=== PATIENT | male | born 1975 | race Caucasian/White ===

== ENCOUNTER 2024-05-02 09:29 | Outpatient (CLI) | payer OTHER, SELFPAY ==
--- NOTE | 2024-05-10 11:22 | WPDHOMESLEEP ---
Sleep Study - Home Unattended Date of Study: 05/02/24 Ordering Provider: Kim Dyer NP Interpreting Provider: Monie Kraft MD Home Sleep Study Type: Watch PAT Height: 1.78 m Weight: 102.058 kg Body Mass Index: 32.3 Neck Circumference (inches): 16.75 [place]: 11 Reason for Sleep Study Hypersomnolence Sleep History Pato Ching is a 48-year-old male who has gained 10 lb in the last year. His office note indicates that he drinks caffeine, 5 caffeinated beverages, a combination of coffee and Monster drinks. He is a daily smoker. He has 5 beers daily. He falls asleep easy leave when he sits down. He has seasonal allergies, uses Zyrtec and Flonase. He has occasional coughing and wheezing. He has occasional heartburn manage with Tums or Rolaids. He did not complete the sleep questionnaire. [facility] Past Medical History Medical History Acute right hip pain BMI 29.0-29.9,adult BMI 31.0-31.9,adult BMI 33.0-33.9,adult Colon cancer screening (05/03/24) Normal colonoscopy 05/03/2024, Dr. Khan, recheck 7 years. Essential (primary) hypertension Herpes simplex of male genitalia HTN (hypertension) Hypersomnia Hypogonadism male Low back pain with right-sided sciatica Male erectile dysfunction, unspecified Otitis media of both ears Seasonal allergies Snoring Tobacco use disorder, continuous Vitamin D deficiency Witnessed episode of apnea Family History Family History Mother No problems noted. Father , 69 yrs old at time of Alzheimers disease Grandparent Cancer Grandparent , in house fire No problems noted. Grandparent Cancer Grandparent Cancer Social History Social History Smoking packs per day: 1 Smoking cigarettes per day: 20.0 Years smoked: 3 Smoking pack-years: 3.00 Smoking status: Current every day smoker Tobacco type: cigarettes Alcohol intake: current Drinks per week: 35 Alcohol use details: 6 per day Substance use: never Substance use type: does not use Lack of Transportation: No Lack of Food: Never True Current Housing: I Have Housing Concerned About Future Housing: No Difficulty Paying Gas/Electric Bills: No Difficulty Paying for Meds: No Currently Unemployed: No Education: High School Diploma/GED Difficulty w/ Childcare or Family Care: No Living arrangements: with family Occupation/Education: occupation Gender identity (if verbalized by the patient): Male Sexual Orientation (if Verbalized by the Patient): Straight or Heterosexual Spiritual care concerns: No Agree to blood products: Yes Medications Home Medications Medication Instructions Recorded Confirmed Type tadalafil 20 mg tablet 20 mg PO DAILY PRN Sexual Activity 10/21/20 05/03/24 History amlodipine 10 mg tablet 10 mg PO DAILY #90 tabs 04/06/24 05/03/24 Rx valacyclovir 500 mg tablet 500 mg PO DAILY #90 tabs 04/06/24 05/03/24 Rx cetirizine 10 mg tablet (Zyrtec) 10 mg PO DAILY PRN Allergy Symptoms 04/12/24 05/03/24 History fluticasone propionate 50 1 spray intranasal BID 04/12/24 05/03/24 History mcg/actuation nasal spray,suspension (Flonase Allergy Relief) Sleep Procedure The sleep study was completed using MIOXT a technically adequate device with seven channels: peripheral arterial tone, actigraphy, body position, snore, respiratory movement, pulse oximetry, sleep staging, and heart rate. Prior to using the device, the patient received verbal and written instructions for its application and was provided with the [employer] phone number for additional telephonic instruction with 24-hour availability of qualified personnel to answer questions. Sleep Architecture Total recording time is 7 hours 11 minutes. Total sleep ayo
[2024-05-10 11:33] VITALS: BMI 32.3
== END 2024-05-08 10:19 | disposition home or self-care (01) ==
LOC: ANHCSM 09:30
PROVIDERS: PCP Family Medicine; Visit Provider Nurse Practitioner Family
DX: G47.10 Hypersomnia, unspecified (principal); G47.33 Obstructive sleep apnea (adult) (pediatric)
CPT/HCPCS: 95800

== ENCOUNTER 2024-05-03 08:21 | Day surgery (SDC) | payer OTHER, SELFPAY ==
[2024-04-12 10:24] VITALS: BMI 33.3
[2024-05-03 08:45] VITALS: BP 142/92; PULSE 90; RESP 18; TEMP 37.1; O2SAT 99; BMI 32.2
[2024-05-03] MEDS: LACTATED RINGERS 1,000 ML 150 ML IV CONT (08:59)
--- NOTE | 2024-05-03 09:40 | PM.HPGS ---
History of Present Illness History of Present Illness Consent: Risks, benefits, and alternatives have been discussed and questions answered. Patient agrees to proceed with procedure. Chief complaint: Neoplasm Screening Narrative: Pato Ching is a 48 year old male presents for screening colonoscopy. Patient's current weight appetite and bowel movements are normal. The patient denies abdominal pain. He has had no bleeding. Family history is significant his mother had colon polyps. Review of Systems Review of Systems: All systems reviewed & are unremarkable except as noted in HPI and below PMFSH Past Medical History Medical History (Updated 04/12/24 @ 08:24 by Kim Dyer NP) Acute right hip pain BMI 29.0-29.9,adult BMI 31.0-31.9,adult BMI 33.0-33.9,adult Colon cancer screening Essential (primary) hypertension Herpes simplex of male genitalia HTN (hypertension) Hypersomnia Hypogonadism male Low back pain with right-sided sciatica Male erectile dysfunction, unspecified Otitis media of both ears Seasonal allergies Snoring Tobacco use disorder, continuous Vitamin D deficiency Witnessed episode of apnea Family History Family History Mother No problems noted. Father , 69 yrs old at time of Alzheimers disease Grandparent Cancer Grandparent , in house fire No problems noted. Grandparent Cancer Grandparent Cancer Social History Social History Smoking packs per day: 1 Smoking cigarettes per day: 20.0 Years smoked: 3 Smoking pack-years: 3.00 Smoking status: Current every day smoker Tobacco type: cigarettes Alcohol intake: current Drinks per week: 35 Alcohol use details: 6 per day Substance use: never Substance use type: does not use Lack of Transportation: No Lack of Food: Never True Current Housing: I Have Housing Concerned About Future Housing: No Difficulty Paying Gas/Electric Bills: No Difficulty Paying for Meds: No Currently Unemployed: No Education: High School Diploma/GED Difficulty w/ Childcare or Family Care: No Living arrangements: with family Occupation/Education: occupation Gender identity (if verbalized by the patient): Male Sexual Orientation (if Verbalized by the Patient): Straight or Heterosexual Spiritual care concerns: No Agree to blood products: Yes Meds Home Medications and Allergies Home Medications Medication Instructions Recorded Confirmed Type tadalafil 20 mg tablet 20 mg PO DAILY PRN Sexual Activity 10/21/20 05/03/24 History amlodipine 10 mg tablet 10 mg PO DAILY #90 tabs 04/06/24 05/03/24 Rx valacyclovir 500 mg tablet 500 mg PO DAILY #90 tabs 04/06/24 05/03/24 Rx cetirizine 10 mg tablet (Zyrtec) 10 mg PO DAILY PRN Allergy Symptoms 04/12/24 05/03/24 History fluticasone propionate 50 1 spray intranasal BID 04/12/24 05/03/24 History mcg/actuation nasal spray,suspension (Flonase Allergy Relief) Allergies Allergy/AdvReac Type Severity Reaction Status Date / Time No Known Allergies Allergy Verified 04/30/24 09:57 Vital Signs Vital Signs - 24 hr 05/03/24 08:45 Temperature 98.8 F Pulse Rate 90 Respiratory Rate 18 Blood Pressure 142/92 H Pulse Oximetry 99 Oxygen Delivery Room Air Exam Narrative: Physical exam reveals patient to be alert. Vital signs stable. HEENT exam is unremarkable. Patient is anicteric. Lungs are clear to auscultation and to percussion. Heart is without murmur or extra sounds. Abdomen bowel sounds are present soft nontender with no organomegaly. Digital external rectal exam normal. Assessment and Plan Assessment and plan (1) Colon cancer screening: Code(s): Z12.11 - Encounter for screening for malignant neoplasm of colon Status: Acute Assessment and P
--- NOTE | 2024-05-03 09:41 | WPDANESEPPF ---
Anes - Initial Pre Proc Eval Procedure: Operation Date: 05/03/24 10:00 Proposed Procedures p Screening Colonoscopy - Charlie Khan MD Date/Time: 05/03/24 09:41 Surgeon: Charlie Khan MD Pre Op Diagnosis: Neoplasm Screening Patient Data Age: 48 Gender: M Height: 1.78 m Weight: 101.8 kg Last Vital Signs Temp 37.1 C 05/03/24 08:45 Pulse 90 05/03/24 08:45 Resp 18 05/03/24 08:45 BP 142/92 H 05/03/24 08:45 Pulse Ox 99 05/03/24 08:45 O2 Del Method Room Air 05/03/24 08:45 Allergies Allergy/AdvReac Type Severity Reaction Status Date / Time No Known Allergies Allergy Verified 04/30/24 09:57 Home Medications Medication Instructions Recorded Confirmed Type tadalafil 20 mg tablet 20 mg PO DAILY PRN Sexual Activity 10/21/20 05/03/24 History amlodipine 10 mg tablet 10 mg PO DAILY #90 tabs 04/06/24 05/03/24 Rx valacyclovir 500 mg tablet 500 mg PO DAILY #90 tabs 04/06/24 05/03/24 Rx cetirizine 10 mg tablet (Zyrtec) 10 mg PO DAILY PRN Allergy Symptoms 04/12/24 05/03/24 History fluticasone propionate 50 1 spray intranasal BID 04/12/24 05/03/24 History mcg/actuation nasal spray,suspension (Flonase Allergy Relief) Patient hx anesthesia problems: none Family hx anesthesia problems: none Results Review: All pre-operative results and documents have been reviewed as part of the pre-operative evaluation. [facility] Past Medical History Medical History Acute right hip pain BMI 29.0-29.9,adult BMI 31.0-31.9,adult BMI 33.0-33.9,adult Colon cancer screening Essential (primary) hypertension Herpes simplex of male genitalia HTN (hypertension) Hypersomnia Hypogonadism male Low back pain with right-sided sciatica Male erectile dysfunction, unspecified Otitis media of both ears Seasonal allergies Snoring Tobacco use disorder, continuous Vitamin D deficiency Witnessed episode of apnea Family History Family History Mother No problems noted. Father , 69 yrs old at time of Alzheimers disease Grandparent Cancer Grandparent , in house fire No problems noted. Grandparent Cancer Grandparent Cancer Social History Social History Smoking packs per day: 1 Smoking cigarettes per day: 20.0 Years smoked: 3 Smoking pack-years: 3.00 Smoking status: Current every day smoker Tobacco type: cigarettes Alcohol intake: current Drinks per week: 35 Alcohol use details: 6 per day Substance use: never Substance use type: does not use Lack of Transportation: No Lack of Food: Never True Current Housing: I Have Housing Concerned About Future Housing: No Difficulty Paying Gas/Electric Bills: No Difficulty Paying for Meds: No Currently Unemployed: No Education: High School Diploma/GED Difficulty w/ Childcare or Family Care: No Living arrangements: with family Occupation/Education: occupation Gender identity (if verbalized by the patient): Male Sexual Orientation (if Verbalized by the Patient): Straight or Heterosexual Spiritual care concerns: No Agree to blood products: Yes Anes - Eval Final PreProcedure Day of Procedure 05/03/24 09:41 Patient weight: obese Heart: regular rate and rhythm Lungs: clear to auscultation Airway: Mallampati scale class II Neurological: alert and oriented Last oral intake: >/= 8 hours ASA classification: III Emergent: no Anesthetic plan: proceed Anesthesia type and monitoring: general GIVS and standard monitoring Results Review: All pre-operative results and documents have been reviewed as part of the pre-operative evaluation. Informed Consent: The patient's anesthetic plan and its attendant risks and benefits were discussed with the patient/family/POA. Questions were so
[2024-05-03 11:09] VITALS: BP 92/73; PULSE 93; RESP 16; O2SAT 96
[2024-05-03 11:19] VITALS: BP 101/79; PULSE 88; RESP 18; O2SAT 97
--- NOTE | 2024-05-03 11:25 | WPDANESPN ---
Anes - Prog Note Post-Op Date/Time: 05/03/24 11:25 Cardiovascular status: normal Respiratory status: normal Airway patency: baseline Mental status: baseline Post-Op hydration status: normal Vital Signs: Last Vital Signs Temp 37.1 C 05/03/24 08:45 Pulse 88 05/03/24 11:19 Resp 18 05/03/24 11:19 BP 101/79 05/03/24 11:19 Pulse Ox 97 05/03/24 11:19 O2 Del Method Room Air 05/03/24 11:19 Pain Score (VAS): 0/10 I/O: Intake & Output 05/02/24 05/03/24 05/03/24 23:59 07:59 15:59 Intake Total 400 Balance 400 Patient Feedback: Patient satisfied with anesthetic care.
[2024-05-03 11:29] VITALS: BP 127/93; PULSE 86; RESP 18; O2SAT 100
== END 2024-05-03 11:35 | disposition home or self-care (01) ==
PROVIDERS: PCP Family Medicine; Visit Provider Internal Medicine Gastroenterology
PROC: 0DJD8ZZ Inspection of Lower Intestinal Tract, Via Natural or Artificial Opening Endoscopic (ICD-10-PCS; CPT 45378; principal; 2024-05-03 10:00)
DX: Z12.11 Encounter for screening for malignant neoplasm of colon (principal); Z83.718 Family history of other colon polyps
CPT/HCPCS: 45378

== ENCOUNTER 2024-11-10 03:15 | Emergency (ER) | payer OTHER, SELFPAY ==
[2024-11-10] VITALS (36 sets, daily range): BP systolic 134–176; BP diastolic 79–105; PULSE 73–118; RESP 14–24; TEMP 36.4; O2SAT 94–100
--- NOTE | ~2024-11-10 | CT_ITS ---
EXAMINATION: 1. CT facial & cervical spine wo DATE: 11/10/2024 06:14 INDICATION: Syncope with head injury and facial lacerations. TECHNIQUE: 1. Computed tomography (CT) of the maxillofacial region and of the cervical spine were performed with out intravenous contrast. Sagittal and coronal reconstructions of both regions were obtained. Automat ed exposure control and iterative reconstruction technique were employed. The dose-length product was 385.7 mGy-cm. COMPARISON: None. FINDINGS: Maxillofacial CT: Prominent soft tissue swelling with subcutaneous hematoma in the left malar region. No acute maxillof acial fractures. Specifically the nasal bones, mandible, zygomatic arches and corbett of the orbits and paranasal sinuses are all intact. There is mild leftward bowing of the nasal septum which parallels the contours of the turbinates. There is prominent mucosal thickening in the bilateral maxillary, eth moid and sphenoid sinuses along with small amount of bubbly mucus suggesting acute sinusitis. Orbits are normal. Mastoid air cells and middle ear cavities are clear. Cervical spine CT: Straightening of the normal cervical lordosis. Moderate osteoarthritis at the atlantoaxial articulati on. Vertebral body heights are normal. No fracture. Severe disc height loss at C6-C7, moderate disc h eight loss at C5-C6 and mild disc height loss at C4-C5. Disc bulges and small endplate osteophytes re sult in mild central canal stenosis at each of these levels. Severe bilateral uncovertebral osteoarth ritis at C6-C7 and mild uncovertebral osteoarthritis at C4-C5 and C5-C6. There is also multilevel mil d bilateral cervical facet osteoarthritis. Moderate neural foraminal stenosis bilaterally at C6-C7. M ild neural foraminal stenosis on the right at C4-C5. Small amount of atherosclerotic calcific locatio n at the bilateral carotid bulbs. Cervical soft tissues are otherwise unremarkable. IMPRESSION: 1. Left malar soft tissue swelling with subcutaneous hematoma. No acute maxillofacial fractures. 2. Mild to moderate cervical spondylosis with no acute osseous abnormality. 3. Extensive sinus disease with some frothy mucus suspicious for acute sinusitis. Reviewed, dictated and finalized at location A. R LINE REPAIRER IMPRESSION: 1. Left malar soft tissue swelling with subcutaneous hematoma. No acute maxillo facial fractures. 2. Mild to moderate cervical spondylosis with no acute osseous abnormality. 3. Extensive sinus disease with some frothy mucus suspicious for acute sinusiti s.
--- NOTE | ~2024-11-10 | CT_ITS ---
EXAMINATION: CT brain wo con DATE: 11/10/2024 06:13 INDICATION: Syncope with head injury and facial lacerations. TECHNIQUE: Computed tomography (CT) of the head was performed without intravenous contrast. Sagittal and coronal reconstructions were performed. The mA was adjusted according to patient size. Iterative reconstruction technique was employed. The dose-length product was 681.00 mGy-cm. COMPARISON: None FINDINGS: No calvarial fracture. No acute intracranial hemorrhage, acute infarction or abnormal extra axial flu id collection. Ventricles are normal and symmetric. No mass/mass effect. Mucosal thickening and depen dent mucus/fluid in the bilateral maxillary, ethmoid and sphenoid sinuses. The orbits and mastoid air cells are normal. IMPRESSION: 1. No calvarial fracture or acute intracranial process. 2. Extensive sinus disease. Reviewed, dictated and finalized at location A. N MENDER
--- NOTE | ~2024-11-10 | XR_ITS ---
EXAMINATION: XR chest 2V DATE: 11/10/2024 04:11 INDICATION: Syncopal episode with fall. Cough. TECHNIQUE: frontal and lateral views of the chest were obtained. COMPARISON: None FINDINGS: The lungs are clear with no focal airspace opacities, pulmonary edema, pleural effusion or pneumothor ax. The cardiomediastinal silhouette is normal. Old healed right clavicle fracture deformity. IMPRESSION: 1. No acute cardiopulmonary disease. Reviewed, dictated and finalized at location A. AL CROP DUSTER
--- NOTE | 2024-11-10 03:34 | ECG_ITS ---
Test Date: 2024-11-10 03:32:03 Measurements Intervals [place] Rate: 103 P: 56 IA: 137 QRS: 14 QRSD: 109 T: 43 QT: 342 QTc: 449 Interpretive Statements SINUS TACHYCARDIA OTHERWISE NORMAL ECG Electronically Signed On 11-10-2024 08:30:30 [employer] by Eamon Banuelos M.D.
[2024-11-10 03:48] LABS: Basophils Absolute Auto 0.1 K/mm3 (0.0-0.1); Basophils Percent Auto 1.5 % (0.2-1.2); Eosinophils Absolute Auto 0.3 K/mm3 (0-0.3); Eosinophils Percent Auto 2.7 % (0-4.4); Hemoglobin 15.9 g/dL (14.0-18.0); Immature Granulocyte Absolute 0.08 K/mm3 (0.00-0.031); Immature Granulocyte Percent A 0.9 % (0-0.5); Lymphocytes Absolute Auto 2.46 K/mm3 (0.9-3.2); Lymphocytes Percent Auto 26.5 % (18.3-44.2); Mean Corpuscular Hemoglobin 32.9 pg (26-34); Mean Corpuscular Volume 88.8 fl (80-100); Mean Platelet Volume 7.9 fl (7.4-10.4); Monocytes Absolute Auto 0.7 K/mm3 (0.1-0.6); Monocytes Percent Auto 7.2 % (2.6-8.5); Neutrophils Absolute Auto 5.7 K/mm3 (1.3-6.7); Neutrophils Percent Auto 61.2 % (45.5-73.1); Platelet Count Result 344 k/mm3 (150-375); Red Blood Count 4.84 M/mm3 (4.6-6.20); Red Cell Distribution Width 12.2 % (11.5-14.5); White Blood Count 9.3 K/mm3 (4.5-10.0)
[2024-11-10 04:02] LABS: Alanine Aminotransferase 40 U/L (6-50); Albumin Level 4.4 g/dL (3.5-5.1); Alkaline Phosphatase 67 U/L (38-126); Anion Gap 7 mmol/L (4-12); Aspartate Amino Transferase 48 U/L (17-59); Bilirubin,Total 0.6 mg/dL (0.2-1.3); Blood Urea Nitrogen 8 mg/dL (9-20); Calcium 9.2 mg/dL (8.4-10.2); Carbon Dioxide 21 mmol/L (22-30); Chloride 104 mmol/L (98-107); Estimated CRCL calculation 121 ml/min; Estimated Glomerular Filt Rate > 60; Glucose 129 mg/dL (65-110); Potassium 4.2 mmol/L (3.4-5.0); Sodium 132 mmol/L (137-145)
[2024-11-10 05:40] LABS: Troponin I < 0.012 ng/mL (0.000-0.034)
[2024-11-10] MEDS: SODIUM CHLORIDE 0.9% IV 2,000 ML 999 ML IV CONT (08:57)
[2024-11-10] MEDS: TETANUS,DIPHTHERIA,AC PERTUSSIS ADULT (0.5 ML) BOOSTRIX IM (08:58)
--- NOTE | 2024-11-10 09:22 | ED_ITS ---
HPI - General Adult General Chief complaint: Syncope Stated complaint: SYNCOPAL EPISODE, LEFT CHEEK ABRASION & LAC Time Seen by Provider: 11/10/24 07:01 History of Present Illness HPI narrative: this is a 49-year-old male presenting ED with chief of syncope. Yesterday patient had 2 syncopal events. Both occurred after he went from sitting either in his sofa or his bed and got up. He within lose consciousness fall to the ground. Patient sustained a laceration over his left cheek. No use of blood thinners. No neurologic deficits. patient denies any chest pain palpitations shortness of breath seating these events. Patient is recently been started on amlodipine as well as a water pill for hypertension. Related Data Home Medications ?Medication ?Instructions ?Recorded ?Confirmed ?Last Taken ?Type tadalafil 20 mg tablet 20 mg PO DAILY PRN Sexual Activity 10/21/20 09/21/24 Unknown History cetirizine 10 mg tablet (Zyrtec) 10 mg PO DAILY PRN Allergy Symptoms 04/12/24 09/21/24 05/02/24 History fluticasone propionate 50 1 spray intranasal BID 04/12/24 09/21/24 05/01/24 History mcg/actuation nasal spray,suspension (Flonase Allergy Relief) Allergies Allergy/AdvReac Type Severity Reaction Status Date / Time No Known Allergies Allergy Verified 11/10/24 03:36 [facility] Past Medical History Medical History (Updated 11/10/24 @ 09:28 by Raymond Whitney MD) BMI 34.0-34.9,adult Central sleep apnea Seasonal allergies Otitis media of both ears Colon cancer screening (05/03/24) Normal colonoscopy 05/03/2024, Dr. Khan, recheck 7 years. Hypersomnia Witnessed episode of apnea Snoring Vitamin D deficiency BMI 33.0-33.9,adult Acute right hip pain BMI 31.0-31.9,adult Low back pain with right-sided sciatica Tobacco use disorder, continuous BMI 29.0-29.9,adult Herpes simplex of male genitalia Hypogonadism male Male erectile dysfunction, unspecified Essential (primary) hypertension HTN (hypertension) Family History Family History Mother No problems noted. Father , 69 yrs old at time of Alzheimers disease Grandparent Cancer Grandparent , in house fire No problems noted. Grandparent Cancer Grandparent Cancer Social History Social History Smoking packs per day: 1 Smoking cigarettes per day: 20.0 Years smoked: 3 Smoking pack-years: 3.00 Smoking status: Current every day smoker Tobacco type: cigarettes Alcohol intake: current Drinks per week: 35 Alcohol use details: 6 per day Substance use: never Substance use type: does not use Lack of Transportation: No Lack of Food: Never True Current Housing: I Have Housing Concerned About Future Housing: No Difficulty Paying Gas/Electric Bills: No Difficulty Paying for Meds: No Currently Unemployed: No Education: High School Diploma/GED Difficulty w/ Childcare or Family Care: No Living arrangements: with family Occupation/Education: occupation Gender identity (if verbalized by the patient): Male Sexual Orientation (if Verbalized by the Patient): Straight or Heterosexual Spiritual care concerns: No Agree to blood products: Yes Exam 2 Narrative: APPEARANCE: No apparent distress. Head:3.5 cm laceration over the left cheek, periorbital ecchymosis over left eye EYES: EOMI, NOSE: Atraumatic NECK: Trachea midline RESPIRATORY: No increased rate of breathing clear to auscultation CARDIOVASCULAR: RRR, ABDOMINAL: Non-distended MUSCULOSKELETAl: No obvious deformities NEURO: Alert. Cranial nerves 2-12 grossly intact. Sensation light touch, motor function cerebellar function intact for 4 extremities. Gait exam was normal. SKIN:: Warm, dry. Normal color PSYCHIATRIC: Normal affect Course Vital Signs Vital signs: Vital Signs Temperature 97.5 F L 11/10/24 03:15 Pulse Rate 118 H 11/10/24 03:15 Respiratory Rate 20 11/10/24 03:15 Blood Pressure 149/105 H 11/10/24 03:15 Pulse Oximetry 97 11/10/24 03:15 Oxygen Delivery Room Air 11/10/24 03:15 Temperature 97.5 F L 11/10/24 03:15 Pulse Rate 96 11/10/24 09:01 Respiratory Rate 20 11/10/24 09:01 Blood Pressure 166/101 H 11/10/24 09:01 Pulse Oximetry 98 11/10/24 09:01 Oxygen Delivery Room Air 11/10/24 03:15 Procedures Laceration Laceration 1: Date: 11/10/24 Site: face Side (If applicable): left Size (cm): 3.5 Description: linear Depth: simple, single layer Local Anesthetic: lidocaine 1% Amount of anesthesia used (mL): 3 ====== Skin Level ====== Skin layer closed with: prolene Size (cm): 5-0 Number of sutures: 6 Technique: simple, interrupted ====== Subcutaneous Layer ====== ====== Muscle Layer ====== ====== Tendon Layer ====== Medical Decision Making MDM Narrative Medical decision making narrative: -Course: 49-year-old male presenting with 2 syncopal events. Syncopal events are orthostatic in nature no high-risk findings on laboratory studies/ EKG. Laceration was repaired. CT imaging negative for traumatic injury patient. given fluid resuscitation with improvement in heart rate. Patient was able ambulate around the ED without dizziness or lightheadedness. Patient be discharged follow-up with his primary care physician to discuss his antihypertensive regimen. He has been encouraged to drink plenty fluids. Given return precautions. -DDX includes but is not limited to: dehydration orthostatic hypotension, syncope -Co-morbidities complicating care: hypertension -Independent interpretation of studies: labs and imaging reviewed Independent EKG interpretation: Rhythm [sinus], Rate [103], [place] -[normal], MD -[normal], QRS [narrow], QTC [normal], T waves -[negative for concerning inversions], ST Segments - [Negative for concerning elevations] Final interpretations: sinus tachycardia -Procedures: laceration repair -Interventions: 2 L normal saline, Tdap -Shared decision making / Disposition:Discharged. Vital Signs Vital Signs: Vital Signs Temperature 97.5 F L 11/10/24 03:15 Pulse Rate 118 H 11/10/24 03:15 Respiratory Rate 20 11/10/24 03:15 Blood Pressure 149/105 H 11/10/24 03:15 Pulse Oximetry 97 11/10/24 03:15 Oxygen Delivery Room Air 11/10/24 03:15 Temperature 97.5 F L 11/10/24 03:15 Pulse Rate 96 11/10/24 09:01 Respiratory Rate 20 11/10/24 09:01 Blood Pressure 166/101 H 11/10/24 09:01 Pulse Oximetry 98 11/10/24 09:01 Oxygen Delivery Room Air 11/10/24 03:15 Lab Data 11/10/24 03:41 11/10/24 03:41 Labs: Lab Results 11/10/24 Range/Units 03:41 WBC 9.3 (4.5-10.0) K/mm3 RBC 4.84 (4.6-6.20) M/mm3 Hgb 15.9 (14.0-18.0) g/dL Hct 43.0 (42.0-52.0) % MCV 88.8 (80-100) fl MCH 32.9 (26-34) pg MCHC 37.0 H (32-36) g/dl RDW 12.2 (11.5-14.5) % Plt Count 344 (150-375) k/mm3 MPV 7.9 (7.4-10.4) fl Immature Gran % (Auto) 0.9 H (0-0.5) % Neut % (Auto) 61.2 (45.5-73.1) % Lymph % (Auto) 26.5 (18.3-44.2) % Placer % (Auto) 7.2 (2.6-8.5) % Eos % (Auto) 2.7 (0-4.4) % Baso % (Auto) 1.5 H (0.2-1.2) % Lymph # (Auto) 2.46 (0.9-3.2) K/mm3 Placer # (Auto) 0.7 H (0.1-0.6) K/mm3 Eos # (Auto) 0.3 (0-0.3) K/mm3 Baso # (Auto) 0.1 (0.0-0.1) K/mm3 Abs Immat Gran (auto) 0.08 H (0.00-0.031) K/mm3 Absolute Neuts (auto) 5.7 (1.3-6.7) K/mm3 Absolute Nucleated RBC 0.000 (0.0-0.012) K/mm3 Nucleated RBC % 0.0 (0.0-0.2) % Sodium 132 L (137-145) mmol/L Potassium 4.2 (3.4-5.0) mmol/L Chloride 104 (98-107) mmol/L Carbon Dioxide 21 L (22-30) mmol/L Anion Gap 7 (4-12) mmol/L BUN 8 L (9-20) mg/dL Creatinine 0.80 (0.7-1.3) mg/dL Estim Creat Clear Calc 121 ml/min Estimated GFR > 60 (59 - ) Glucose 129 H (65-110) mg/dL Calcium 9.2 (8.4-10.2) mg/dL Total Bilirubin 0.6 (0.2-1.3) mg/dL AST 48 (17-59) U/L ALT 40 (6-50) U/L Alkaline Phosphatase 67 (38-126) U/L Troponin I < 0.012 (0.000-0.034) ng/mL Total Protein 8.0 (6.3-8.2) g/dL Albumin 4.4 (3.5-5.1) g/dL Discharge Plan Discharge Clinical Impression: Orthostatic syncope, Facial laceration Patient Disposition: Home, Self-Care Condition: Stable Instructions: Antibiotic Form, Care For Your Stitches (DC), Syncope (ED), Facial Laceration (ED) Additional Instructions: You were seen in the emergency department for syncope. Please make sure you are drinking plenty of fluids. Please follow-up your primary care physician as you are on several medications that could cause her blood pressure to be too low. Please return to the ED if you develop recurrent syncope, chest pain difficulty breathing or would like re-evaluation. The sutures on your face need to be removed in 5 days. This can be performed by any medical. If you develop signs of infection please return emergency department immediately. Patient Language: Lao Prescriptions: No Action hydrochlorothiazide 12.5 mg tablet 12.5 mg PO DAILY Qty: 90 3RF tadalafil 20 mg tablet 20 mg PO DAILY PRN (Reason: Sexual Activity) Rx Instructions: administer approximately 30min before sexual activity; do not use more than 1 dose per 24hrs amlodipine 10 mg tablet 10 mg PO DAILY Qty: 90 3RF valacyclovir 500 mg tablet 500 mg PO DAILY Qty: 90 3RF fluticasone propionate [Flonase Allergy Relief] 50 mcg/actuation spray,suspension 1 spray intranasal BID Rx Instructions: administer into each nostril cetirizine [Zyrtec] 10 mg tablet 10 mg PO DAILY PRN (Reason: Allergy Symptoms) zolpidem [Ambien] 10 mg tablet 10 mg PO ONCE Qty: 1 0RF Rx Instructions: take with you to sleep study Follow-up/Referrals: Isaiah Streeter MD [Primary Care Provider] -
== END 2024-11-10 11:12 | disposition home or self-care (01) ==
PROVIDERS: Emergency Medicine; Emergency Provider Emergency Medicine; PCP Family Medicine
DX: I95.1 Orthostatic hypotension (principal); S01.412A Laceration without foreign body of left cheek and temporomandibular area, initial encounter; Z23 Encounter for immunization; I10 Essential (primary) hypertension; E55.9 Vitamin D deficiency, unspecified; G47.31 Primary central sleep apnea; G47.10 Hypersomnia, unspecified; F17.210 Nicotine dependence, cigarettes, uncomplicated; Z79.899 Other long term (current) drug therapy; R00.0 Tachycardia, unspecified; W18.39XA Other fall on same level, initial encounter
CPT/HCPCS: 12013; 36415; 70450; 70486; 71046; 72125; 80053; 84484; 85025; 90471; 90715; 93005; 96360; 99284; J2003; J7030

== ENCOUNTER 2025-04-26 20:05 | Inpatient (IN) | payer OTHER, SELFPAY ==
[2025-04-26] VITALS (16 sets, daily range): BP systolic 123–177; BP diastolic 77–103; PULSE 56–90; RESP 15–23; TEMP 36.6; O2SAT 95–100
--- NOTE | ~2025-04-26 | XR_ITS ---
XR chest 2V Ordering provider: Costa Koenig MD History: 49 years Male with . CP . Comparison: November 10, 2024 FINDINGS: MEDIASTINUM: The cardiac silhouette is not enlarged. LUNGS: No infiltrates, effusions or pneumothorax. OTHER: No free air under the diaphragm. IMPRESSION: No acute cardiopulmonary pathology Reviewed, dictated and finalized at location A.
--- NOTE | 2025-04-26 20:11 | ECG_ITS ---
Test Date: 2025-04-26 20:15:53 Measurements Intervals [place] Rate: 82 P: 56 [place]: 124 QRS: 34 QRSD: 113 T: 37 QT: 366 QTc: 429 Interpretive Statements SINUS RHYTHM INCOMPLETE RIGHT BUNDLE BRANCH BLOCK BASELINE WANDER- I, II, III, AVR AVL, AVF, V1-V2 BORDERLINE ECG Compared to ECG 11/10/2024 03:32:03 HEART RATE HAS DECREASED Electronically Signed On 04-27-2025 07:17:46 CDT by Yair Francisco D.O.
--- NOTE | 2025-04-26 20:28 | ED.CHESTPAIN ---
HPI - Chest Pain General Chief Complaint: Chest Pain <LAURA Esparza Last Filed: 04/27/25 00:41> Stated Complaint: chest pain <LAURA Esparza Last Filed: 04/27/25 00:41> Time Seen by Provider: 04/26/25 20:13 <LAURA Esparza Last Filed: 04/27/25 00:41> Source: patient <LAURA Esparza Last Filed: 04/27/25 00:41> Mode of arrival: ambulatory <LAURA Esparza Last Filed: 04/27/25 00:41> Limitations: no limitations <LAURA Esparza Last Filed: 04/27/25 00:41> History of Present Illness HPI narrative: This is a 49-year-old male that presents to the emergency department for left-sided chest pain. Ongoing intermittently since this afternoon while at work. Reports the pain radiates into his left arm and left jaw. It is fairly brief. No known alleviating or exacerbating factors. Denies any other associated symptoms. No pain currently. <LAURA Esparza Last Filed: 04/27/25 00:41> Related Data Home Medications: Home Medications ?Medication ?Instructions ?Recorded ?Confirmed ?Last Taken ?Type tadalafil 20 mg tablet 20 mg PO DAILY PRN Sexual Activity 10/21/20 04/19/25 Unknown History cetirizine 10 mg tablet (Zyrtec) 10 mg PO DAILY PRN Allergy Symptoms 04/12/24 04/19/25 05/02/24 History fluticasone propionate 50 1 spray intranasal BID 04/12/24 04/19/25 05/01/24 History mcg/actuation nasal spray,suspension (Flonase Allergy Relief) <LAURA Esparza Last Filed: 04/27/25 00:41> Allergies/Adverse Reactions: Allergies Allergy/AdvReac Type Severity Reaction Status Date / Time No Known Allergies Allergy Verified 04/19/25 08:06 <LAURA Esparza Last Filed: 04/27/25 00:41> Review of Systems Review of Systems: CONSTITUTIONAL: Denies fever CARDIOVASCULAR: Reports chest pain. Denies palpitations, or edema. RESPIRATORY: Denies cough or dyspnea. GASTROINTESTINAL: Denies abdominal pain, nausea, vomiting <Brittni Ayers PA-C - Last Filed: 04/27/25 00:41> All systems reviewed & are unremarkable except as noted in HPI and below <Brittni Ayers PA-C - Last Filed: 04/27/25 00:41> [facility] Past Medical History Medical History: Medical History (Updated 04/26/25 @ 23:33 by Brittni Ayers PA-C) Muscle spasm BMI 35.0-35.9,adult BMI 34.0-34.9,adult Central sleep apnea Seasonal allergies Otitis media of both ears Colon cancer screening (05/03/24) Normal colonoscopy 05/03/2024, Dr. Khan, recheck 7 years. Hypersomnia Witnessed episode of apnea Snoring Vitamin D deficiency BMI 33.0-33.9,adult Acute right hip pain BMI 31.0-31.9,adult Low back pain with right-sided sciatica Tobacco use disorder, continuous BMI 29.0-29.9,adult Herpes simplex of male genitalia Hypogonadism male Male erectile dysfunction, unspecified Essential (primary) hypertension HTN (hypertension) <Brittni Ayers PA-C - Last Filed: 04/27/25 00:41> Family History Family History: Family History Mother No problems noted. Father , 69 yrs old at time of Alzheimers disease Grandparent Cancer Grandparent , in house fire No problems noted. Grandparent Cancer Grandparent Cancer <Brittni Ayers PA-C - Last Filed: 04/27/25 00:41> Social History Social History: Social History Smoking packs per day: 1 Smoking cigarettes per day: 20.0 Years smoked: 3 Smoking pack-years: 3.00 Smoking status: Current every day smoker Tobacco type: cigarettes Alcohol intake: current Drinks per week: 35 Alcohol use details: 6 per day Substance use: never Substance use type: does not use Lack of Transportation: No Lack of Food: Never True Current Housing: I Have Housing Concerned About Future Housing: No Difficulty Paying Gas/Electric Bills: No Difficulty Paying for Meds: No Currently Unemployed: No Education: High School Diploma/GED Difficulty w/ Childcare or Family Care: No Living arrangements: with family Occupation/Education: occupation Gender identity (if verbalized by the patient): Male Sexual Orientation (if Verbalized by the Patient): Straight or Heterosexual Spiritual care concerns: No Agree to blood products: Yes <Brittni Ayers PA-C - Last Filed: 04/27/25 00:41> Exam Narrative: GENERAL: Well-appearing, well-nourished, and in no acute distress. HEAD: Normocephalic, atraumatic. EYES: EOMI. ENT: Nares clear, no rhinorrhea or epistaxis. Mucous membranes moist. Oropharynx without tonsillar hypertrophy exudate or other lesions. NECK: Supple. No adenopathy or masses. CHEST: Clear to auscultation. No respiratory distress. No wheezes rales or rhonchi HEART: Regular rate and rhythm. No murmur heard. Normal peripheral pulses. EXTREMITIES: Normal range of motion. No edema. SKIN: Warm, dry, no rash. NEURO: No focal deficits. Alert and oriented x3. PSYCH: Normal mood and affect <Brittni Ayers PA-C - Last Filed: 04/27/25 00:41> Course Course Emergency Course: Patient was updated on his workup, conversation with cardiology, and plan of care <Brittni Ayers PA-C - Last Filed: 04/27/25 00:41> CHUMMER/PA Physician Supervision I agree with midlevel documentation; I performed the medical decision making component of this evaluation. Patient's 3 hour EKG reviewed by myself, I did note elevations in inferior leads with changes lateral leads, compared to initial EKG 3 hrs ago these are all new, I am highly concerned for ischemia, immediately contacted associate agent insurance sales at [phone], EKG viewed by them, manufacturing lab technician activated, all within 15 min upon receipt of this new EKG. Patient on re-evaluation now reporting chest pressure return, started on aspirin and heparin and will be going to manufacturing lab technician. <Magali Hinojosa MD - Last Filed: 04/27/25 01:28> Consultations Consultation #1: [address] changes, interventional cardiology contacted. STEMI activated. Dr. Alva recommends Aspirin and Heparin bolus. Patient endorsing current chest pressure. Morphine and zofran ordered <Brittni Ayers PA-C - Last Filed: 04/27/25 00:41> Date: 04/26/25 <Brittni Ayers PA-C - Last Filed: 04/27/25 00:41> Vital Signs Vital signs: Vital Signs Temperature 97.8 F 04/26/25 20:16 Pulse Rate 87 04/26/25 20:16 Respiratory Rate 16 04/26/25 20:16 Blood Pressure 177/99 H 04/26/25 20:16 Pulse Oximetry 95 04/26/25 20:16 Oxygen Delivery Room Air 04/26/25 20:16 Temperature 98.2 F 04/27/25 00:07 Pulse Rate 72 04/27/25 00:07 Respiratory Rate 18 04/27/25 00:07 Blood Pressure 134/96 H 04/27/25 00:07 Pulse Oximetry 97 04/27/25 00:07 Oxygen Delivery Room Air 04/26/25 23:31 <Brittni Ayers PA-C - Last Filed: 04/27/25 00:41> Vital Signs Temperature 97.8 F 04/26/25 20:16 Pulse Rate 87 04/26/25 20:16 Respiratory Rate 16 04/26/25 20:16 Blood Pressure 177/99 H 04/26/25 20:16 Pulse Oximetry 95 04/26/25 20:16 Oxygen Delivery Room Air 04/26/25 20:16 Temperature 98.2 F 04/27/25 00:07 Pulse Rate 72 04/27/25 00:07 Respiratory Rate 18 04/27/25 00:07 Blood Pressure 134/96 H 04/27/25 00:07 Pulse Oximetry 97 04/27/25 00:07 Oxygen Delivery Room Air 04/26/25 23:31 <Magali Hinojosa MD - Last Filed: 04/27/25 01:28> MDM - Chest Pain MDM Narrative Medical decision making narrative: Patient presents the ER for chest pain ongoing intermittently since this afternoon. Hypertensive upon arrival, this improved without intervention. CBC and metabolic panel without concerning findings. Initial EKG showing no acute ST changes, baseline troponin negative. Chest x-ray without acute cardiopulmonary abnormality. 3 hour EKG showing new ST changes, interventional cardiology contacted. STEMI activated. Dr. Alva recommends Aspirin and Heparin bolus. Patient endorsing current chest pressure. Morphine and zofran given. Patient taken to the manufacturing lab technician <Brittni Ayers PA-C - Last Filed: 04/27/25 00:41> Differential Diagnosis Differential diagnosis: Likely stable angina, unstable angina pectoris, atypical chest pain and other (STEMI, NSTEMI) <Brittni Ayers PA-C - Last Filed: 04/27/25 00:41> Lab Data Attestation: I reviewed the patient's lab results. <Brittni Ayers PA-C - Last Filed: 04/27/25 00:41> Result diagrams: 04/26/25 20:31 04/26/25 20:31 <LAURA Esparza Last Filed: 04/27/25 00:41> Labs: Lab Results 04/26/25 04/26/25 Range/Units 20:31 23:03 WBC 9.6 (4.5-10.0) K/mm3 RBC 4.79 (4.6-6.20) M/mm3 Hgb 15.4 (14.0-18.0) g/dL Hct 43.1 (42.0-52.0) % MCV 90.0 (80-100) fl MCH 32.2 (26-34) pg MCHC 35.7 (32-36) g/dl RDW 12.5 (11.5-14.5) % Plt Count 281 (150-375) k/mm3 MPV 8.1 (7.4-10.4) fl Immature Gran % (Auto) 0.3 (0-0.5) % Neut % (Auto) 65.8 (45.5-73.1) % Lymph % (Auto) 23.6 (18.3-44.2) % Bonner % (Auto) 8.9 H (2.6-8.5) % Eos % (Auto) 0.6 (0-4.4) % Baso % (Auto) 0.8 (0.2-1.2) % Lymph # (Auto) 2.26 (0.9-3.2) K/mm3 Bonner # (Auto) 0.9 H (0.1-0.6) K/mm3 Eos # (Auto) 0.1 (0-0.3) K/mm3 Baso # (Auto) 0.1 (0.0-0.1) K/mm3 Abs Immat Gran (auto) 0.03 (0.00-0.031) K/mm3 Absolute Neuts (auto) 6.3 (1.3-6.7) K/mm3 Absolute Nucleated RBC 0.000 (0.0-0.012) K/mm3 Nucleated RBC % 0.0 (0.0-0.2) % PT 13.7 (11.1-14.7) Seconds INR 1.1 APTT 27.1 (22.3-36.8) Seconds Sodium 135 L (137-145) mmol/L Potassium 3.9 (3.4-5.0) mmol/L Chloride 105 (98-107) mmol/L Carbon Dioxide 21 L (22-30) mmol/L Anion Gap 9 (4-12) mmol/L BUN 14 D (9-20) mg/dL Creatinine 0.96 (0.7-1.3) mg/dL Estim Creat Clear Calc Not Reportable Estimated GFR > 60 (59 - ) Glucose 108 (65-110) mg/dL Calcium 9.3 (8.4-10.2) mg/dL Total Bilirubin 0.4 (0.2-1.3) mg/dL AST 30 (17-59) U/L ALT 29 (6-50) U/L Alkaline Phosphatase 58 (38-126) U/L Troponin I 0.013 0.030 D (0.000-0.034) ng/mL Total Protein 7.9 (6.3-8.2) g/dL Albumin 4.4 (3.5-5.1) g/dL Triglycerides 147 (<150) mg/dL Cholesterol 177 (0-200) mg/dL LDL Cholesterol Direct 93 mg/dL HDL Direct 54 mg/dL Lipase 79 (23-300) U/L <Brittni Ayers PA-C - Last Filed: 04/27/25 00:41> Lab Results 04/26/25 04/26/25 Range/Units 20:31 23:03 WBC 9.6 (4.5-10.0) K/mm3 RBC 4.79 (4.6-6.20) M/mm3 Hgb 15.4 (14.0-18.0) g/dL Hct 43.1 (42.0-52.0) % MCV 90.0 (80-100) fl MCH 32.2 (26-34) pg MCHC 35.7 (32-36) g/dl RDW 12.5 (11.5-14.5) % Plt Count 281 (150-375) k/mm3 MPV 8.1 (7.4-10.4) fl Immature Gran % (Auto) 0.3 (0-0.5) % Neut % (Auto) 65.8 (45.5-73.1) % Lymph % (Auto) 23.6 (18.3-44.2) % Bonner % (Auto) 8.9 H (2.6-8.5) % Eos % (Auto) 0.6 (0-4.4) % Baso % (Auto) 0.8 (0.2-1.2) % Lymph # (Auto) 2.26 (0.9-3.2) K/mm3 Bonner # (Auto) 0.9 H (0.1-0.6) K/mm3 Eos # (Auto) 0.1 (0-0.3) K/mm3 Baso # (Auto) 0.1 (0.0-0.1) K/mm3 Abs Immat Gran (auto) 0.03 (0.00-0.031) K/mm3 Absolute Neuts (auto) 6.3 (1.3-6.7) K/mm3 Absolute Nucleated RBC 0.000 (0.0-0.012) K/mm3 Nucleated RBC % 0.0 (0.0-0.2) % PT 13.7 (11.1-14.7) Seconds INR 1.1 APTT 27.1 (22.3-36.8) Seconds Sodium 135 L (137-145) mmol/L Potassium 3.9 (3.4-5.0) mmol/L Chloride 105 (98-107) mmol/L Carbon Dioxide 21 L (22-30) mmol/L Anion Gap 9 (4-12) mmol/L BUN 14 D (9-20) mg/dL Creatinine 0.96 (0.7-1.3) mg/dL Estim Creat Clear Calc Not Reportable Estimated GFR > 60 (59 - ) Glucose 108 (65-110) mg/dL Calcium 9.3 (8.4-10.2) mg/dL Total Bilirubin 0.4 (0.2-1.3) mg/dL AST 30 (17-59) U/L ALT 29 (6-50) U/L Alkaline Phosphatase 58 (38-126) U/L Troponin I 0.013 0.030 D (0.000-0.034) ng/mL Total Protein 7.9 (6.3-8.2) g/dL Albumin 4.4 (3.5-5.1) g/dL Triglycerides 147 (<150) mg/dL Cholesterol 177 (0-200) mg/dL LDL Cholesterol Direct 93 mg/dL HDL Direct 54 mg/dL Lipase 79 (23-300) U/L <Magali Hinojosa MD - Last Filed: 04/27/25 01:28> Imaging Data Radiologist's impression: ITS Impressions Chest X-Ray 04/26/25 22:03 IMPRESSION: No acute cardiopulmonary pathology <Brittni Ayers PA-C - Last Filed: 04/27/25 00:41> ECG Data EKG #1: ECG completion date: 04/26/25 <Brittni Ayers PA-C - Last Filed: 04/27/25 00:41> EKG Interpretation: normal rate, sinus rhythm, no ST changes and normal QT <Brittni Ayers PA-C - Last Filed: 04/27/25 00:41> EKG #2: ECG completion date: 04/26/25 <Brittni Ayers PA-C - Last Filed: 04/27/25 00:41> EKG Interpretation: normal rate, sinus rhythm, ST depression (I and aVL) and ST elevation (III, aVF) <Brittni Ayers PA-C - Last Filed: 04/27/25 00:41> Critical Care Time Critical Care Time Critical Care Time: Yes <Brittni Ayers PA-C - Last Filed: 04/27/25 00:41> Total Critical Care Time: 35 <Brittni Ayers PA-C - Last Filed: 04/27/25 00:41> Discharge Plan Discharge Clinical Impression: ST elevation PA (STEMI) Qualifiers: Involved coronary artery: unspecified coronary artery Qualified Code(s): I21.3 - ST elevation (STEMI) myocardial infarction of unspecified site <Brittni Ayers PA-C - Last Filed: 04/27/25 00:41> Patient Disposition: Still a Patient <LAURA Esparza Last Filed: 04/27/25 00:41> Condition: Serious <LAURA Esparza Last Filed: 04/27/25 00:41> Patient Language: Ug[place]an <LAURA Esparza Last Filed: 04/27/25 00:41> Prescriptions: No Action tadalafil 20 mg tablet 20 mg PO DAILY PRN (Reason: Sexual Activity) Rx Instructions: administer approximately 30min before sexual activity; do not use more than 1 dose per 24hrs valacyclovir 500 mg tablet 500 mg PO DAILY Qty: 90 3RF fluticasone propionate [Flonase Allergy Relief] 50 mcg/actuation spray,suspension 1 spray intranasal BID Rx Instructions: administer into each nostril cetirizine [Zyrtec] 10 mg tablet 10 mg PO DAILY PRN (Reason: Allergy Symptoms) irbesartan 150 mg tablet 150 mg PO DAILY Qty: 30 5RF prednisone 20 mg tablet 20 mg PO DAILY Qty: 10 0RF cyclobenzaprine 10 mg tablet 10 mg PO TID PRN (Reason: muscle spasm) Qty: 30 0RF zolpidem [Ambien] 10 mg tablet 10 mg PO ONCE Qty: 1 0RF Rx Instructions: take with you to sleep study amlodipine 10 mg tablet 10 mg PO DAILY Qty: 90 3RF <Brittni Ayers PA-C - Last Filed: 04/27/25 00:41> Follow-up/Referrals: Kim Dyer NP [Primary Care Provider] - <LAURA Esparza Last Filed: 04/27/25 00:41> Quality HEART score for chest pain patients History: moderately suspicious <LAURA Esparza Last Filed: 04/27/25 00:41> ECG: non specific repolarization disturbance/LBTB/PM <Brittni Ayers PA-C - Last Filed: 04/27/25 00:41> Age: > 45 and < 65 years <Brittni Ayers PA-C - Last Filed: 04/27/25 00:41> Risk factors: > or = to 3 risk factors of atherosclerotic disease <Brittni Ayers PA-C - Last Filed: 04/27/25 00:41> Troponin: < or = to 1x normal limit <Brittni Ayers PA-C - Last Filed: 04/27/25 00:41> Heart score: 5 <Brittni Ayers PA-C - Last Filed: 04/27/25 00:41> 5 <Magali Hinojosa MD - Last Filed: 04/27/25 01:28>
[2025-04-26 20:36] LABS: Basophils Absolute Auto 0.1 K/mm3 (0.0-0.1); Basophils Percent Auto 0.8 % (0.2-1.2); Eosinophils Absolute Auto 0.1 K/mm3 (0-0.3); Eosinophils Percent Auto 0.6 % (0-4.4); Hematocrit 43.1 % (42.0-52.0); Hemoglobin 15.4 g/dL (14.0-18.0); Immature Granulocyte Absolute 0.03 K/mm3 (0.00-0.031); Immature Granulocyte Percent A 0.3 % (0-0.5); Lymphocytes Absolute Auto 2.26 K/mm3 (0.9-3.2); Lymphocytes Percent Auto 23.6 % (18.3-44.2); Mean Corpuscular HGB Conc 35.7 g/dl (32-36); Mean Corpuscular Hemoglobin 32.2 pg (26-34); Mean Platelet Volume 8.1 fl (7.4-10.4); Monocytes Absolute Auto 0.9 K/mm3 (0.1-0.6); Monocytes Percent Auto 8.9 % (2.6-8.5); Neutrophils Absolute Auto 6.3 K/mm3 (1.3-6.7); Neutrophils Percent Auto 65.8 % (45.5-73.1); Platelet Count Result 281 k/mm3 (150-375); Red Blood Count 4.79 M/mm3 (4.6-6.20); Red Cell Distribution Width 12.5 % (11.5-14.5); White Blood Count 9.6 K/mm3 (4.5-10.0)
[2025-04-26 20:48] LABS: Alanine Aminotransferase 29 U/L (6-50); Albumin Level 4.4 g/dL (3.5-5.1); Alkaline Phosphatase 58 U/L (38-126); Anion Gap 9 mmol/L (4-12); Aspartate Amino Transferase 30 U/L (17-59); Bilirubin,Total 0.4 mg/dL (0.2-1.3); Blood Urea Nitrogen 14 mg/dL (9-20); Calcium 9.3 mg/dL (8.4-10.2); Carbon Dioxide 21 mmol/L (22-30); Chloride 105 mmol/L (98-107); Estimated Glomerular Filt Rate > 60; Glucose 108 mg/dL (65-110); INR 1.1; Lipase 79 U/L (23-300); Partial Thromboplastin Time 27.1 Seconds (22.3-36.8); Potassium 3.9 mmol/L (3.4-5.0); Prothrombin Time 13.7 Seconds (11.1-14.7); Sodium 135 mmol/L (137-145); Total Protein 7.9 g/dL (6.3-8.2)
[2025-04-26 20:59] LABS: Troponin I 0.013 ng/mL (0.000-0.034)
--- NOTE | 2025-04-26 23:00 | ECG_ITS ---
Test Date: 2025-04-26 23:05:01 Measurements Intervals [place] Rate: 65 P: 63 LA: 149 QRS: 31 QRSD: 109 T: 109 QT: 385 QTc: 402 Interpretive Statements SINUS RHYTHM POSSIBLE LEFT ATRIAL ENLARGEMENT INCOMPLETE RIGHT BUNDLE BRANCH BLOCK INFERIOR ST ELEVATION MYOCARDIAL INJURY- ACUTE RECIPROCAL ST DEPRESSION IN HIGH LATERAL LEADS CONSIDER POSTERIOR INFARCT, ACUTE BASELINE ARTIFACT- I, III, AVL, V2 ABNORMAL ECG Compared to ECG 04/26/2025 20:15:53 STEMI NOW PRESENT Electronically Signed On 04-27-2025 07:14:46 CDT by Yair Francisco D.O.
[2025-04-26] MEDS: ONDANSETRON INJ 4 MG/2 ML VIAL IV PUSH (23:35)
[2025-04-26] MEDS: MORPHINE SULFATE (*CRX) 4 MG/ML INJ IV PUSH (23:35)
[2025-04-26] MEDS: HEPARIN SODIUM 5,000 UNITS/ML VIAL 4000 UNITS IV PUSH (23:39)
[2025-04-26] MEDS: ASPIRIN 81 MG CHEWABLE TABLET 324 MG PO (23:41)
--- NOTE | 2025-04-26 23:56 | PC.NURSE ---
pt at bedside. pt remains a+o x 4. Pt belongings in bags and given to . Pt has clothing, shoes, phone and wedding ring. all handed to .
[2025-04-27] VITALS (24 sets, daily range): BP systolic 112–176; BP diastolic 55–102; PULSE 60–100; RESP 9–20; TEMP 36.4–36.9; O2SAT 92–99; BMI 35.6
--- NOTE | 2025-04-27 | ECHO_ITS ---
Patient Info Name: Pato Ching Age: 49 years : 1975 Gender: Male Ht: 69 in Wt: 244 lbs BSA: 2.36 m2 HR: 83 bpm BP: 126 / 92 mmHg Heart Rhythm: Sinus Rhythm Technical Quality: Good Exam Date: 04/27/2025 9:41 AM Patient Status: I Admit Date: 04/27/2025 Exam Type: CA echo doppler color flow Complete two-dimensional, color flow and Doppler transthoracic echocardiogram is performed. Staff Referring Physician: Costa Koenig Motorcycle Service Technician: Isatu Cox Attending Provider: Courtney Alva MD Summary 1. Complete two-dimensional, color flow and Doppler transthoracic echocardiogram is performed. 2. Left ventricular chamber dimension is normal. 3. Left ventricular systolic function is normal, estimated at 60-65. 4. There is mildly increased left ventricular wall thickness. 5. The basal inferior wall is akinetic. 6. The left ventricular diastolic function is grade I diastolic dysfunction. 7. The basal inferolateral wall, and mid inferolateral wall are hypokinetic. 8. There is mild to moderate mitral valve regurgitation. 9. There is mild pulmonic regurgitation. Left Ventricle Left ventricular chamber dimension is normal. Left ventricular systolic function is normal, estimated at 60-65. There is mildly increased left ventricular wall thickness. The left ventricular diastolic function is grade I diastolic dysfunction. The basal inferior wall is akinetic. The basal inferolateral wall, and mid inferolateral wall are hypokinetic. All other corbett appear normal. Right Ventricle Right ventricular chamber dimension is normal. Right ventricular systolic function is normal. Left Atria Left atrial chamber dimension is normal. Right Atria Right atrial chamber dimension is normal. Atrial Septum Intact interatrial septum visualized by color flow imaging. Aortic Valve The aortic valve is trileaflet. There is no aortic valve stenosis. There is trace aortic valve regurgitation. Pulmonic Valve The pulmonic valve is normal. There is no pulmonic valve stenosis. There is mild pulmonic regurgitation. Mitral Valve The mitral valve has normal leaflets. There is no mitral valve stenosis. There is mild to moderate mitral valve regurgitation. Tricuspid Valve The tricuspid valve leaflets are normal. There is no significant tricuspid valve stenosis. There is trace tricuspid valve regurgitation. Pericardium/Pleural The pericardium appears normal. There is no pericardial effusion. Inferior Vena Cava Normal inferior vena cava with >50% collapse upon inspiration consistent with normal right atrial pressure, 5 mmHg. Aorta The aortic root size at the sinus of Valsalva is normal. Left Ventricular Outflow Tract Name Value Normal LVOT 2D LVOT Diameter 2.0 cm LVOT Doppler LVOT Peak Velocity 107 cm/s LVOT Peak Gradient 5 mmHg LVOT Mean Gradient 3 mmHg LVOT VTI 23 cm LVOT VTI/AV VTI Ratio 0.7 LVOT Stroke Volume 72 ml LVOT CO 6.0 l/min LVOT CI 2.5 l/min/m2 Pulmonic Valve Name Value Normal RVOT Doppler RVOT Peak Velocity 67 cm/s RVOT Peak Gradient 2 mmHg PV Doppler PV Peak Velocity 116 cm/s PV Peak Gradient 5 mmHg Mitral Valve Name Value Normal MV Diastolic Function MV E Peak Velocity 71 cm/s MV A Peak Velocity 73 cm/s MV E/A 1.0 MV Decel Time (PW) 197 ms MV Annular TDI MV E/e' (Septal) 8.0 MV E/e' (Lateral) 5.6 MV E/e' (Average) 6.8 Tricuspid Valve Name Value Normal Estimated PAP/RSVP RA Pressure 5 mmHg <=5 Aortic Valve Name Value Normal AV Doppler AV Peak Velocity 156 cm/s AV Peak Gradient 10 mmHg AV Mean Gradient 6 mmHg AV VTI 33 cm AV Area (Cont Eq VTI) 2.2 cm2 >=3.0 AV Area (Cont Eq Raji) 2.1 cm2 AV DI (Raji) 0.68 AV Regurgitation 2D LVOT Area 3.1 cm2 Ventricles Name Value Normal LV Dimensions 2D/MM IVS Diastolic Thickness (2D) 1.0 cm 0.6-1.0 LVID Diastole (2D) 5.3 cm 4.2-5.8 LVIW Diastolic Thickness (2D) 1.0 cm 0.6-1.0 LVID Systole (2D) 3.3 cm 2.5-4.0 LVOT Diameter 2.0 cm LV Mass (2D Cubed) 202.28 g 88.00-224.00 LV Mass Index (2D Cubed) 86 g/m2 49-115 Relative Wall Thickness (2D) 0.39 <=0.42 LV Fractional Shortening/Ejection Fraction 2D/MM LV Fractional Shortening (2D) 36 % 25-43 LV EF (2D Teichholz) 66 % LV Diastolic Volume (4C MOD) 113 ml LV EF (4C MOD) 59 % LV Diastolic Volume (2C MOD) 100 ml LV EF (2C MOD) 62 % LV Diastolic Volume (BP MOD) 110 ml 62-150 LV Diastolic Volume Index (BP MOD) 46 ml/m2 34-74 LV Systolic Volume (BP MOD) 43 ml 21-61 LV Systolic Volume Index (BP MOD) 18 ml/m2 11-31 LV EF (BP MOD) 61 % 52-72 LV Diastolic Length (4C) 7.8 cm LV Systolic Length (4C) 6.3 cm LV Stroke Volume (4C MOD) 66 ml Atria Name Value Normal LA Dimensions LA Volume (4C A-L) 34 ml LA Volume (BP A-L) 36 ml RA Dimensions RA Systolic Major Neptune Length (4C) 4.8 cm 2.1-2.7 RA Area (4C) 12.3 cm2 <=18.0 Wall Motion Scoring Wall Motion Scoring Index: 1.24 Report Signatures
--- NOTE | 2025-04-27 00:02 | PC.NURSE ---
immanuel in lab to add on lipid panel
--- NOTE | 2025-04-27 00:13 | PM.IMHP ---
H&P: HPI History of Present Illness Date/Time: 04/27/25 00:13 Chief Complaint: Chest pain Narrative: 49 y/o male with PMH of HTN, current tobacco smoker who presents with CC of left-sided chest pain. Chest pain started this afternoon and is off and on since then. Pain radiates to his left arm and left jaw. There are no alleviating or exacerbating factors. No associated SOB or diaphoresis. No palpitations, dizziness, pre syncope, syncope, lightheadedness, PND, orthopnea, recent weight gain, or leg swelling. He has a family history of CAD and is a current smoker. His first EKG showed SR with no significant ST-T changes. Repeat EKG at [address] elevation in leads III, avF with reciprocal ST depressions in leads I, aVL. STEMI was activated and patient was taken to the cardiac catheterization lab emergently. Review of Systems Review of Systems: A complete review of systems was performed and negative other than those mentioned in the HPI. [facility] Past Medical History Medical History (Updated 04/26/25 @ 23:33 by Brittni Ayers PA-C) Muscle spasm BMI 35.0-35.9,adult BMI 34.0-34.9,adult Central sleep apnea Seasonal allergies Otitis media of both ears Colon cancer screening (05/03/24) Normal colonoscopy 05/03/2024, Dr. Khan, recheck 7 years. Hypersomnia Witnessed episode of apnea Snoring Vitamin D deficiency BMI 33.0-33.9,adult Acute right hip pain BMI 31.0-31.9,adult Low back pain with right-sided sciatica Tobacco use disorder, continuous BMI 29.0-29.9,adult Herpes simplex of male genitalia Hypogonadism male Male erectile dysfunction, unspecified Essential (primary) hypertension HTN (hypertension) Family History Family History Mother No problems noted. Father , 69 yrs old at time of Alzheimers disease Grandparent Cancer Grandparent , in house fire No problems noted. Grandparent Cancer Grandparent Cancer Social History Social History Smoking packs per day: 1 Smoking cigarettes per day: 20.0 Years smoked: 3 Smoking pack-years: 3.00 Smoking status: Current every day smoker Tobacco type: cigarettes Alcohol intake: current Drinks per week: 35 Alcohol use details: 6 per day Substance use: never Substance use type: does not use Lack of Transportation: No Lack of Food: Never True Current Housing: I Have Housing Concerned About Future Housing: No Difficulty Paying Gas/Electric Bills: No Difficulty Paying for Meds: No Currently Unemployed: No Education: High School Diploma/GED Difficulty w/ Childcare or Family Care: No Living arrangements: with family Occupation/Education: occupation Gender identity (if verbalized by the patient): Male Sexual Orientation (if Verbalized by the Patient): Straight or Heterosexual Spiritual care concerns: No Agree to blood products: Yes Meds Home Medications and Allergies Home Medications ?Medication ?Instructions ?Recorded ?Confirmed ?Type tadalafil 20 mg tablet 20 mg PO DAILY PRN Sexual Activity 10/21/20 04/19/25 History valacyclovir 500 mg tablet 500 mg PO DAILY #90 tabs 04/06/24 04/19/25 Rx cetirizine 10 mg tablet (Zyrtec) 10 mg PO DAILY PRN Allergy Symptoms 04/12/24 04/19/25 History fluticasone propionate 50 1 spray intranasal BID 04/12/24 04/19/25 History mcg/actuation nasal spray,suspension (Flonase Allergy Relief) zolpidem 10 mg tablet (Ambien) 10 mg PO ONCE #1 tablet 05/11/24 04/19/25 Rx amlodipine 10 mg tablet 10 mg PO DAILY #90 tabs 04/02/25 04/19/25 Rx cyclobenzaprine 10 mg tablet 10 mg PO TID PRN muscle spasm #30 04/19/25 04/19/25 Rx tabs irbesartan 150 mg tablet 150 mg PO DAILY #30 tabs 04/19/25 04/19/25 Rx prednisone 20 mg tablet 20 mg PO DAILY #10 tabs 04/19/25 04/19/25 Rx Allergies Allergy/AdvReac Type Severity Reaction Status Date / Time No Known Allergies Allergy Verified 04/19/25 08:06 Vital Signs Vital Signs - 24 hr 04/26/25 20:16 04/26/25 20:17 04/26/25 20:20 Temperature 36.6 C 36.6 C Pulse Rate 87 79 Respiratory Rate 16 18 Blood Pressure 177/99 H 177/99 H Pulse Oximetry 95 99 Oxygen Delivery Room Air Room Air 04/26/25 20:30 04/26/25 21:31 04/26/25 21:46 Temperature 36.6 C 36.6 C Pulse Rate 80 87 81 Respiratory Rate 18 20 21 H Blood Pressure 159/100 H 164/97 H 157/103 H Pulse Oximetry 98 97 97 Oxygen Delivery 04/26/25 22:01 04/26/25 22:30 04/26/25 22:46 Temperature Pulse Rate 90 56 L 61 Respiratory Rate 20 18 20 Blood Pressure 155/93 H 126/90 Pulse Oximetry 98 98 99 Oxygen Delivery 04/26/25 22:47 04/26/25 23:00 04/26/25 23:15 Temperature Pulse Rate 62 64 60 Respiratory Rate 17 15 17 Blood Pressure Pulse Oximetry 99 98 97 Oxygen Delivery 04/26/25 23:16 04/26/25 23:30 04/26/25 23:31 Temperature 36.6 C Pulse Rate 67 81 85 Respiratory Rate 19 22 H 23 H Blood Pressure 128/95 H 128/95 H Pulse Oximetry 97 100 100 Oxygen Delivery Room Air 04/26/25 23:31 04/26/25 23:45 04/26/25 23:46 Temperature 36.6 C Pulse Rate 79 65 58 L Respiratory Rate 17 20 Blood Pressure 123/77 123/77 Pulse Oximetry 97 98 Oxygen Delivery 04/27/25 00:01 04/27/25 00:02 04/27/25 00:07 Temperature 36.8 C Pulse Rate 61 64 72 Respiratory Rate 16 19 18 Blood Pressure 134/96 H 134/96 H Pulse Oximetry 98 97 97 Oxygen Delivery Exam Narrative: General: Alert oriented x3, no acute distress Neck: Supple, no JVD Chest: Bilaterally clear to auscultation, no rales or rhonchi Cardiac: S1, S2 +, regular rate, regular rhythm, no murmurs or rubs Extremities: no pedal edema, no skin rash Neurologic: Alert and oriented x3, no focal neurological deficits H&P: Results Labs Labs: Short CBC 04/26/25 Range/Units 20:31 WBC 9.6 (4.5-10.0) K/mm3 Hgb 15.4 (14.0-18.0) g/dL Hct 43.1 (42.0-52.0) % Plt Count 281 (150-375) k/mm3 BMP 04/26/25 20:31 Sodium 135 L Potassium 3.9 Chloride 105 Carbon Dioxide 21 L BUN 14 D Creatinine 0.96 Glucose 108 Calcium 9.3 Cardiac Enzymes 04/26/25 04/26/25 Range/Units 20:31 23:03 Troponin I 0.013 0.030 D (0.000-0.034) ng/mL Liver Function 04/26/25 Range/Units 20:31 Total Bilirubin 0.4 (0.2-1.3) mg/dL AST 30 (17-59) U/L ALT 29 (6-50) U/L Alkaline Phosphatase 58 (38-126) U/L Albumin 4.4 (3.5-5.1) g/dL Assessment and Plan Assessment and plan (1) ST elevation OK (STEMI): Qualifiers: Involved coronary artery: unspecified coronary artery Qualified Code(s): I21.3 - ST elevation (STEMI) myocardial infarction of unspecified site Code(s): I21.3 - ST elevation (STEMI) myocardial infarction of unspecified site Status: Acute (2) Essential (primary) hypertension: Code(s): I10 - Essential (primary) hypertension Status: Acute Plan -Asa 325mg PO once, then 81 mg PO daily -Heparin bolus given in the ER -Start high intensity statin -Check FLP -TTE in am -Emergent cardiac catheterization -Smoking cessation counseling -Start metoprolol 12.5 mg PO BID if SBP>90mm Hg -Resume home dose of amlodipine and irbesartan if BP tolerates -Further recommendations after cath
[2025-04-27 00:17] LABS: Cholesterol 177 mg/dL (0-200); HDL Direct 54 mg/dL; Triglycerides 147 mg/dL (<150)
--- NOTE | 2025-04-27 00:27 | WPDMODSED ---
Moderate Sedation Note-Pt Data Patient Data Diagnosis: Inferior STEMI Present Complaint: Chest pain Procedure to be performed/Plan: Left heart catheterization Coronary angiogram Possible PCI Allergies Allergy/AdvReac Type Severity Reaction Status Date / Time No Known Allergies Allergy Verified 04/19/25 08:06 Home Medications ?Medication ?Instructions ?Recorded ?Confirmed ?Type tadalafil 20 mg tablet 20 mg PO DAILY PRN Sexual Activity 10/21/20 04/19/25 History valacyclovir 500 mg tablet 500 mg PO DAILY #90 tabs 04/06/24 04/19/25 Rx cetirizine 10 mg tablet (Zyrtec) 10 mg PO DAILY PRN Allergy Symptoms 04/12/24 04/19/25 History fluticasone propionate 50 1 spray intranasal BID 04/12/24 04/19/25 History mcg/actuation nasal spray,suspension (Flonase Allergy Relief) zolpidem 10 mg tablet (Ambien) 10 mg PO ONCE #1 tablet 05/11/24 04/19/25 Rx amlodipine 10 mg tablet 10 mg PO DAILY #90 tabs 04/02/25 04/19/25 Rx cyclobenzaprine 10 mg tablet 10 mg PO TID PRN muscle spasm #30 04/19/25 04/19/25 Rx tabs irbesartan 150 mg tablet 150 mg PO DAILY #30 tabs 04/19/25 04/19/25 Rx prednisone 20 mg tablet 20 mg PO DAILY #10 tabs 04/19/25 04/19/25 Rx Sedation/Anesthesia: No previous sedation/anesthesia problems (including family history). [facility] Past Medical History Medical History (Updated 04/26/25 @ 23:33 by Brittni Ayers PA-C) Muscle spasm BMI 35.0-35.9,adult BMI 34.0-34.9,adult Central sleep apnea Seasonal allergies Otitis media of both ears Colon cancer screening (05/03/24) Normal colonoscopy 05/03/2024, Dr. Khan, recheck 7 years. Hypersomnia Witnessed episode of apnea Snoring Vitamin D deficiency BMI 33.0-33.9,adult Acute right hip pain BMI 31.0-31.9,adult Low back pain with right-sided sciatica Tobacco use disorder, continuous BMI 29.0-29.9,adult Herpes simplex of male genitalia Hypogonadism male Male erectile dysfunction, unspecified Essential (primary) hypertension HTN (hypertension) Family History Family History Mother No problems noted. Father , 69 yrs old at time of Alzheimers disease Grandparent Cancer Grandparent , in house fire No problems noted. Grandparent Cancer Grandparent Cancer Social History Social History Smoking packs per day: 1 Smoking cigarettes per day: 20.0 Years smoked: 3 Smoking pack-years: 3.00 Smoking status: Current every day smoker Tobacco type: cigarettes Alcohol intake: current Drinks per week: 35 Alcohol use details: 6 per day Substance use: never Substance use type: does not use Lack of Transportation: No Lack of Food: Never True Current Housing: I Have Housing Concerned About Future Housing: No Difficulty Paying Gas/Electric Bills: No Difficulty Paying for Meds: No Currently Unemployed: No Education: High School Diploma/GED Difficulty w/ Childcare or Family Care: No Living arrangements: with family Occupation/Education: occupation Gender identity (if verbalized by the patient): Male Sexual Orientation (if Verbalized by the Patient): Straight or Heterosexual Spiritual care concerns: No Agree to blood products: Yes Mod Sed Physical Exam Physical Exam Pre Procedural Exam: Normal: Lungs, Heart Size, Heart Rate and Heart Rhythm Hours since solid foods: 6 Hours since liquid intake: 6 Mallampati Classification: class II Internal Medicine - PN: Obj Da Vital Signs Vital Signs: Vital Signs - 24 hr 04/26/25 20:16 04/26/25 20:17 04/26/25 20:20 Temperature 36.6 C 36.6 C Pulse Rate 87 79 Respiratory Rate 16 18 Blood Pressure 177/99 H 177/99 H Pulse Oximetry 95 99 Oxygen Delivery Room Air Room Air 04/26/25 20:30 04/26/25 21:31 04/26/25 21:46 Temperature 36.6 C 36.6 C Pulse Rate 80 87 81 Respiratory Rate 18 20 21 H Blood Pressure 159/100 H 164/97 H 157/103 H Pulse Oximetry 98 97 97 Oxygen Delivery 04/26/25 22:01 04/26/25 22:30 04/26/25 22:46 Temperature Pulse Rate 90 56 L 61 Respiratory Rate 20 18 20 Blood Pressure 155/93 H 126/90 Pulse Oximetry 98 98 99 Oxygen Delivery 04/26/25 22:47 04/26/25 23:00 04/26/25 23:15 Temperature Pulse Rate 62 64 60 Respiratory Rate 17 15 17 Blood Pressure Pulse Oximetry 99 98 97 Oxygen Delivery 04/26/25 23:16 04/26/25 23:30 04/26/25 23:31 Temperature 36.6 C Pulse Rate 67 81 85 Respiratory Rate 19 22 H 23 H Blood Pressure 128/95 H 128/95 H Pulse Oximetry 97 100 100 Oxygen Delivery Room Air 04/26/25 23:31 04/26/25 23:45 04/26/25 23:46 Temperature 36.6 C Pulse Rate 79 65 58 L Respiratory Rate 17 20 Blood Pressure 123/77 123/77 Pulse Oximetry 97 98 Oxygen Delivery 04/27/25 00:01 04/27/25 00:02 04/27/25 00:07 Temperature 36.8 C Pulse Rate 61 64 72 Respiratory Rate 16 19 18 Blood Pressure 134/96 H 134/96 H Pulse Oximetry 98 97 97 Oxygen Delivery Meds/Results Radiology Results: ITS Impressions Chest X-Ray 04/26/25 22:03 IMPRESSION: No acute cardiopulmonary pathology Labs 04/26/25 20:31 04/26/25 20:31 Labs: Laboratory Results - last 24 hr 04/26/25 04/26/25 20:31 23:03 WBC 9.6 RBC 4.79 Hgb 15.4 Hct 43.1 MCV 90.0 MCH 32.2 MCHC 35.7 RDW 12.5 Plt Count 281 MPV 8.1 Immature Gran % (Auto) 0.3 Neut % (Auto) 65.8 Lymph % (Auto) 23.6 [place] % (Auto) 8.9 H Eos % (Auto) 0.6 Baso % (Auto) 0.8 Lymph # (Auto) 2.26 [place] # (Auto) 0.9 H Eos # (Auto) 0.1 Baso # (Auto) 0.1 Abs Immat Gran (auto) 0.03 Absolute Neuts (auto) 6.3 Absolute Nucleated RBC 0.000 Nucleated RBC % 0.0 PT 13.7 INR 1.1 APTT 27.1 Sodium 135 L Potassium 3.9 Chloride 105 Carbon Dioxide 21 L Anion Gap 9 BUN 14 D Creatinine 0.96 Estim Creat Clear Calc Not Reportable Estimated GFR > 60 Glucose 108 Calcium 9.3 Total Bilirubin 0.4 AST 30 ALT 29 Alkaline Phosphatase 58 Troponin I 0.013 0.030 D Total Protein 7.9 Albumin 4.4 Triglycerides 147 Cholesterol 177 HDL Direct 54 Lipase 79 ASA Classification/Sedation ASA Classification/Sedation ASA Class: III Emergent: Yes Risks: Risks, benefits and alternatives explained and patient/family accepted plan for sedation. Patient re-evaluated immediately prior to sedation.
[2025-04-27 00:28] LABS: LDL Cholesterol Direct 93 mg/dL
--- NOTE | 2025-04-27 00:29 | WPDCARDPROC ---
Cardiac Cath Procedure Note Date of procedure:: 04/27/25 Performing physician:: Courtney Alva MD Indication:: Inferior STEMI Procedure Procedure performed:: Anesthesia: Versed and Fentanyl were ordered and given in my presence at 12:31 a.m., procedure ended at 1:28 a.m.. Supervision of nurse monitored moderate sedation with Versed and Fentanyl was provided for 57 minutes. Fentanyl: 100 mcg Versed: 1 mg Pre-op Diagnosis: -Inferior STEMI Post-op Diagnosis: -Inferior STEMI status post PCI to 90% distal RCA stenosis with 3.0 mm X 22 mm and 3.5 mm X 18 mm stents in overlapping fashion post dilated with 3.25 mm X 15 mm NC balloon -Bradycardia (noted after reperfusion) requiring 8 0 pain 0.5 mg X 2 doses IV -Hypotension (noted after nitro administration) requiring William-Synephrine 100 mcg Procedure(s): Right radial artery access with ultrasound guidance Left heart catheterization with coronary angiography IVUS guided PCI to 90% distal RCA stenosis Access Site: Right radial artery Brief History and Clinical Indications: 49 y/o male with PMH of HTN, current tobacco smoker who presents with CC of left-sided chest pain. Chest pain started this afternoon and is off and on since then. Pain radiates to his left arm and left jaw. There are no alleviating or exacerbating factors. No associated SOB or diaphoresis. No palpitations, dizziness, pre syncope, syncope, lightheadedness, PND, orthopnea, recent weight gain, or leg swelling. He has a family history of CAD and is a current smoker. His first EKG showed SR with no significant ST-T changes. Repeat EKG at [address] elevation in leads III, avF with reciprocal ST depressions in leads I, aVL. STEMI was activated and patient was taken to the cardiac catheterization lab emergently. All risks, benefits and alternatives to left heart catheterization with or without percutaneous coronary intervention was discussed at length with the patient. Risk of complications including but not limited to bleeding, infection, arrhythmia, stroke, worsening kidney function, blood loss, groin hematoma, limb loss, emergency coronary artery bypass grafting, and even were discussed with the patient and all questions were answered. The patient understood and wished to proceed. Time out called, patient name, date of , medical record number, allergies, procedure performed, identify Senior Network Systems Engineer, patient and staff member concurred with accurate data, procedure carried on. Findings: LEFT HEART CATHETERIZATION FINDINGS: 1. Left main: The left main coronary artery is widely patent without any significant obstructive disease. 2. Left anterior descending: The LAD has 50% diffuse proximal and 40% mid stenosis. It gives off 2 large diagonal branches which are angiographically free of significant disease. 3. Left circumflex: The mid left circumflex artery has 40% stenosis. The left circumflex artery gives off a small OM 1 branch which is angiographically free of any significant obstructive disease, large OM 2 branch with 60% proximal stenosis, large OM 3 branch which is angiographically free of any significant obstructive disease, and a small OM 4 branch which is angiographically free of any significant obstructive disease. 4. Right coronary artery: The RCA has 40% proximal stenosis, 40% mid stenosis, and 90% distal stenosis (culprit) before bifurcation. There is TARAN 2 flow in the distal RCA beyond this lesion. The RCA is the dominant vessel. 5. Left ventricle: A. End-diastolic pressure 16 mmHg. B. LV gram deferred. C. No significant gradient across aortic valve on catheter pullback. 6. Opening AO pressure 129/89/109 and closing AO pressure 122/88/80 7 mm Hg Description of Procedure: Informed consent signed and placed in the chart. Patient transferred to slab miller operator room. Prepped and draped in usual sterile fashion. 2% lidocaine injected subcutaneously in right wrist area. 22-gauge venipuncture catheter used to access the right radial artery with the Seldinger technique. 6-FR slender sheath placed in right radial artery. Nitroglycerin 200mcg. 4000 units heparin bolus was given in the ER. J wire advanced under fluoroscopy. Six [place]ian JL 3.5 diagnostic catheter engaged Left Main Coronary Artery. 6 [place]ian JR4 for guide catheter engaged Right Coronary Artery. Multiple orthogonal angiogram obtained and reviewed. JR4 guide catheter crossed aortic valve to obtain LVEDP, LV angiogram deferred. Hemostasis was achieved by application of TR band. Procedure Description for PCI: Heparin was used for anticoagulation (ACT maintained above 250) Patient loaded with heparin at 70 units/kg. 6F JR4 guide catheter was used to intubate the right coronary artery. 0.014 Runthrough coronary wire was passed in to the distal right coronary artery. The lesion was pre-dilated with a 2 mm X 15 mm and 3 mm X 20 mm compliant balloon inflated to high NIYAH. A 3.0 mm X 22 mm and 3.5 mm X 18 mm YOAN were successfully deployed into the distal RCA in overlapping fashion. The stent was post-dilated with a 3.25 mm X 15 mm NC balloon inflated to high NIYAH. Intracoronary NTG was administered. Follow-up angiograms showed an excellent result. Coronary wire and guide-catheter were removed. Pre-procedure - TARAN 2 flow. Post-procedure - TARAN 3 flow. No angiographic complications identified. Assessment: -Inferior STEMI status post PCI to 90% distal RCA stenosis with 3.0 mm X 22 mm and 3.5 mm X 18 mm stents in overlapping fashion post dilated with 3.25 mm X 15 mm NC balloon -Chest pain secondary to inferior STEMI- resolved after PCI -Bradycardia (noted after reperfusion) requiring 8 0 pain 0.5 mg X 2 doses IV -Hypotension (noted after nitro administration) requiring William-Synephrine 100 mcg Post Operative Condition: Stable No significant blood loss Disposition: Admit to ICU Plan: DAPT with aspirin 81 mg daily and Brilinta 90 mg p.o. b.i.d. for 1 year followed by ASA indefinitely. TTE in a.m. tomorrow. Start atorvastatin 80 mg daily. Check FLP. Give IV fluids normal saline at 100 mL/hour for 10 hours. Hold any AV taryn blocking agents and blood pressure reducing medications given bradycardia and hypertension respectively. Both bradycardia and hypotension were transient during reperfusion and after administration of nitro respectively and were resolved by the time patient left the slab miller operator. Check renal function in a.m. Continue aggressive medical therapy and risk factor modification. Cardiac rehab. Smoking cessation. The above findings were discussed with the patient's and mother. Further recommendations and management per primary cardiology team.
[2025-04-27 01:40] LABS: Activated Clotting Time 251 SEC (74-137)
[2025-04-27 01:40] LABS: Activated Clotting Time 251 SEC (74-137)
[2025-04-27] MEDS: SODIUM CHLORIDE 0.9% IV 1,000 ML 125 ML IV CONT (02:00)
--- NOTE | 2025-04-27 02:02 | ECG_ITS ---
Test Date: 2025-04-27 02:06:54 Measurements Intervals [place] Rate: 81 P: 56 MA: 154 QRS: 7 QRSD: 104 T: 22 QT: 366 QTc: 425 Interpretive Statements SINUS RHYTHM CONSIDER INFERIOR INFARCT, AGE INDETERMINATE BASELINE ARTIFACT- I, II, AVR ABNORMAL ECG Compared to ECG 04/26/2025 23:05:01 STEMI NO LONGER PRESENT Electronically Signed On 04-27-2025 07:19:06 CDT by Yair Francisco D.O.
--- NOTE | 2025-04-27 03:29 | ADMGEN ---
This patient, Pato Ching, was admitted to Intensive Care Unit-7 at 0155. Patient/family oriented to hospital policies and general routines including ID bracelet, bed and alarms, visiting hours, pain management, procedures, bathroom and other care routines, personal items, smoking policy, room service/diet, and visiting hours. Information on how to activate the Rapid Response Team has been discussed. Patient/Family are encouraged to report perceived risks to care and to ask questions if they do not understand what they are told or what they should do.
[2025-04-27 04:33] LABS: MRSA (PCR) NOT DETECTED (NOT DETECTE)
[2025-04-27] MEDS: SODIUM CHLORIDE 0.9% IV 1,000 ML 150 ML IV CONT (07:57)
[2025-04-27 09:13] LABS: Basophils Absolute Auto 0.1 K/mm3 (0.0-0.1); Basophils Percent Auto 0.8 % (0.2-1.2); Eosinophils Absolute Auto 0.1 K/mm3 (0-0.3); Eosinophils Percent Auto 1.1 % (0-4.4); Hematocrit 41.7 % (42.0-52.0); Hemoglobin 14.6 g/dL (14.0-18.0); Immature Granulocyte Absolute 0.14 K/mm3 (0.00-0.031); Immature Granulocyte Percent A 1.5 % (0-0.5); Lymphocytes Absolute Auto 1.87 K/mm3 (0.9-3.2); Lymphocytes Percent Auto 20.6 % (18.3-44.2); Mean Corpuscular Hemoglobin 31.9 pg (26-34); Mean Platelet Volume 8.2 fl (7.4-10.4); Monocytes Absolute Auto 0.8 K/mm3 (0.1-0.6); Neutrophils Absolute Auto 6.1 K/mm3 (1.3-6.7); Platelet Count Result 272 k/mm3 (150-375); Red Blood Count 4.58 M/mm3 (4.6-6.20); Red Cell Distribution Width 12.7 % (11.5-14.5); White Blood Count 9.1 K/mm3 (4.5-10.0)
[2025-04-27 09:15] LABS: Anion Gap 8 mmol/L (4-12); Blood Urea Nitrogen 13 mg/dL (9-20); Calcium 8.8 mg/dL (8.4-10.2); Carbon Dioxide 20 mmol/L (22-30); Chloride 107 mmol/L (98-107); Estimated CRCL calculation 116 ml/min; Estimated Glomerular Filt Rate > 60; Glucose 112 mg/dL (65-110); Magnesium 2.1 mg/dL (1.6-2.3); Phosphorus 3.6 mg/dL (2.5-4.5); Potassium 4.2 mmol/L (3.4-5.0); Sodium 135 mmol/L (137-145)
--- NOTE | 2025-04-27 09:41 | P.PNCA_ITS ---
Progress Note: A&P Assessment and Plan (1) ST elevation [place] (STEMI): Qualifiers: Involved coronary artery: unspecified coronary artery Qualified Code(s): I21.3 - ST elevation (STEMI) myocardial infarction of unspecified site Code(s): I21.3 - ST elevation (STEMI) myocardial infarction of unspecified site Status: Acute Assessment and Plan: Inferior STEMI status post PCI to 90% distal RCA stenosis with 3.0 mm X 22 mm and 3.5 mm X 18 mm stents in overlapping fashion post dilated with 3.25 mm X 15 mm NC balloon Recovering in the ICU. Has some shortness of breath. Will DC IV fluids. 2D echocardiogram Doppler will be ordered. Will ease back in home meds For hypertensionas able. Continue high-dose statin. Will check a fasting lipid panel. (2) Essential (primary) hypertension: Code(s): I10 - Essential (primary) hypertension Status: Acute Assessment and Plan: as above (3) Tobacco abuse: Code(s): Z72.0 - Tobacco use Status: Acute Assessment and Plan: counseling performed (4) Obstructive sleep apnea: Code(s): G47.33 - Obstructive sleep apnea (adult) (pediatric) Status: Acute Assessment and Plan: compliance with CPAP is important Plan -Start metoprolol 12.5 mg PO BID if SBP>90mm Hg when able -Resume home dose of amlodipine and irbesartan if BP tolerates Subjective Date/time seen: 04/27/25 09:41 Interval history: 49 y/o male with PMH of HTN, current tobacco smoker who presents with CC of left-sided chest pain. Chest pain started this afternoon and is off and on since then. Pain radiates to his left arm and left jaw. There are no alleviating or exacerbating factors. No associated SOB or diaphoresis. No palpitations, dizziness, pre syncope, syncope, lightheadedness, PND, orthopnea, recent weight gain, or leg swelling. He has a family history of CAD and is a current smoker. His first EKG showed SR with no significant ST-T changes. Repeat EKG at [address] elevation in leads III, avF with reciprocal ST depressions in leads I, aVL. STEMI was activated and patient was taken to the cardiac catheterization lab emergently. Date of service 04/27/2025: PCI to the RCA. Was hypotensive and bradycardic after requiring William-Synephrine. hypertension bradycardia have resolved. Feels little short of breath today. No chest pain. Review of Systems Constitutional: Constitutional: Denies body ache(s) Eyes: Eyes: Denies blurry vision ENT: Reports Normal hearing present Cardiovascular: Cardiovascular: Denies chest pain Respiratory: Respiratory: Reports dyspnea Gastrointestinal: Gastrointestinal: Denies abdominal pain Genitourinary: Genitourinary: Denies hematuria Musculoskeletal: Musculoskeletal: Denies back pain Integumentary/Breasts: Skin/Breast: Denies rash Neurologic: Denies Abnormal speech present Psychiatric: Psychiatric: Denies anxiety Endocrine: Endocrine: Denies change in body appearance Hematologic/Lymphatic: Hematologic/Lymphatic: Denies easy bleeding Allergic/Immunologic: Allergic/Immunologic: Denies GI upset with certain foods Exam Narrative: Alert oriented. Appears to be in no acute distress today although anxious. Appears stated age Const: General: comfortable and no acute distress HENMT: Face/Nose/Sinus: Normal nares present Mouth: Yes moist mucous membranes Eyes: General: appearance normal, both eyes and all related structures Sclera: sclerae normal Neck: Neck: supple and No no JVD Resp: Effort & Inspection: normal respiratory effort Auscultation: clear to auscultation bilaterally Cardio: Rate: regular rate Rhythm: regular rhythm GI: Inspection: non-distended GI Palp: Yes Soft to palpation Skin: General skin exam: normal color and no rashes or lesions noted Neuro: General: gait normal Speech: normal speech Extrem: General: normal to inspection and no edema Psych: Mental Status: mental status grossly normal Affect: normal affect Objective Data Vital Signs Vital Signs: Vital Signs - 24 hr 04/26/25 20:16 04/26/25 20:17 04/26/25 20:20 Temperature 36.6 C 36.6 C Pulse Rate 87 79 Respiratory Rate 16 18 Blood Pressure 177/99 H 177/99 H Pulse Oximetry 95 99 Oxygen Delivery Room Air Room Air 04/26/25 20:30 04/26/25 21:31 04/26/25 21:46 Temperature 36.6 C 36.6 C Pulse Rate 80 87 81 Respiratory Rate 18 20 21 H Blood Pressure 159/100 H 164/97 H 157/103 H Pulse Oximetry 98 97 97 Oxygen Delivery 04/26/25 22:01 04/26/25 22:30 04/26/25 22:46 Temperature Pulse Rate 90 56 L 61 Respiratory Rate 20 18 20 Blood Pressure 155/93 H 126/90 Pulse Oximetry 98 98 99 Oxygen Delivery 04/26/25 22:47 04/26/25 23:00 04/26/25 23:15 Temperature Pulse Rate 62 64 60 Respiratory Rate 17 15 17 Blood Pressure Pulse Oximetry 99 98 97 Oxygen Delivery 04/26/25 23:16 04/26/25 23:30 04/26/25 23:31 Temperature 36.6 C Pulse Rate 67 81 85 Respiratory Rate 19 22 H 23 H Blood Pressure 128/95 H 128/95 H Pulse Oximetry 97 100 100 Oxygen Delivery Room Air 04/26/25 23:31 04/26/25 23:45 04/26/25 23:46 Temperature 36.6 C Pulse Rate 79 65 58 L Respiratory Rate 17 20 Blood Pressure 123/77 123/77 Pulse Oximetry 97 98 Oxygen Delivery 04/27/25 00:01 04/27/25 00:02 04/27/25 00:07 Temperature 36.8 C Pulse Rate 61 64 72 Respiratory Rate 16 19 18 Blood Pressure 134/96 H 134/96 H Pulse Oximetry 98 97 97 Oxygen Delivery 04/27/25 02:02 04/27/25 02:17 04/27/25 02:32 Temperature 36.7 C Pulse Rate 87 90 Respiratory Rate Blood Pressure 127/92 H 134/100 H Pulse Oximetry 99 99 97 Oxygen Delivery Room Air 04/27/25 02:32 04/27/25 02:47 04/27/25 03:00 Temperature Pulse Rate 82 84 86 Respiratory Rate Blood Pressure 136/96 H 140/102 H 134/101 H Pulse Oximetry 97 97 96 Oxygen Delivery 04/27/25 03:33 04/27/25 04:00 04/27/25 04:00 Temperature 36.7 C Pulse Rate 69 71 71 Respiratory Rate 13 Blood Pressure 127/96 H 133/100 H 133/100 H Pulse Oximetry 96 98 98 Oxygen Delivery 04/27/25 04:00 04/27/25 04:00 04/27/25 05:00 Temperature Pulse Rate 71 62 Respiratory Rate 16 Blood Pressure 125/91 H Pulse Oximetry 98 96 Oxygen Delivery Room Air 04/27/25 06:00 04/27/25 06:00 04/27/25 06:00 Temperature Pulse Rate 66 66 66 Respiratory Rate 14 14 Blood Pressure 136/87 136/87 Pulse Oximetry 96 96 Oxygen Delivery 04/27/25 08:00 Temperature 36.4 C L Pulse Rate 67 Respiratory Rate 18 Blood Pressure 126/92 H Pulse Oximetry 97 Oxygen Delivery Intake/Output Intake/Output: Intake & Output 04/24/25 04/25/25 04/26/25 04/27/25 23:59 23:59 23:59 23:59 Intake Total 1200 Output Total 0 Balance 1200 Meds/Results Medications: Active Medications Generic Name Dose Route Start Last Admin Trade Name Freq PRN Reason Stop Dose Admin Aspirin 81 mg 04/27/25 09:00 Aspirin 81 Mg Enteric Tablet PO QAM [facility] Atorvastatin Calcium 80 mg 04/27/25 09:00 Atorvastatin 40 Mg Tablet PO DAILY [facility] Sodium Chloride 1,000 mls @ 125 mls/hr 04/27/25 02:02 04/27/25 07:35 Normal Saline Iv IV CONT 04/27/25 10:01 Infused .Q8H ONE Infusion Nitroglycerin 0.4 mg 04/27/25 02:02 Nitroglycerin Sl 0.4 Mg Tablet SUBLINGUAL Q5MIN PRN Chest Pain Perflutren Lipid Microsphere 0 ml 04/27/25 08:30 Perflutren Lipid Microspheres 1.5 Ml Vial Diluted To 10 Ml Total Volume IV PUSH 04/30/25 08:30 ONCE PRN adequate visualization Protocol Ticagrelor 90 mg 04/27/25 09:00 Ticagrelor 90 Mg Tablet PO Q12HR [facility] Radiology Results: ITS Impressions Chest X-Ray 04/26/25 22:03 IMPRESSION: No acute cardiopulmonary pathology Labs Labs: Laboratory Results - last 24 hr 04/26/25 04/26/25 04/27/25 20:31 23:03 01:00 WBC 9.6 RBC 4.79 Hgb 15.4 Hct 43.1 MCV 90.0 MCH 32.2 MCHC 35.7 RDW 12.5 Plt Count 281 MPV 8.1 Immature Gran % (Auto) 0.3 Neut % (Auto) 65.8 Lymph % (Auto) 23.6 [place] % (Auto) 8.9 H Eos % (Auto) 0.6 Baso % (Auto) 0.8 Lymph # (Auto) 2.26 [place] # (Auto) 0.9 H Eos # (Auto) 0.1 Baso # (Auto) 0.1 Abs Immat Gran (auto) 0.03 Absolute Neuts (auto) 6.3 Absolute Nucleated RBC 0.000 Nucleated RBC % 0.0 PT 13.7 INR 1.1 APTT 27.1 Activ Coag Time Kaolin 251 H Sodium 135 L Potassium 3.9 Chloride 105 Carbon Dioxide 21 L Anion Gap 9 BUN 14 D Creatinine 0.96 Estim Creat Clear Calc Not Reportable Estimated GFR > 60 Glucose 108 Calcium 9.3 Phosphorus Magnesium Total Bilirubin 0.4 AST 30 ALT 29 Alkaline Phosphatase 58 Troponin I 0.013 0.030 D Total Protein 7.9 Albumin 4.4 Triglycerides 147 Cholesterol 177 LDL Cholesterol Direct 93 HDL Direct 54 Lipase 79 Nasal MRSA (PCR) Blood Type Antibody Screen 04/27/25 04/27/25 04/27/25 01:29 02:30 03:45 WBC RBC Hgb Hct MCV MCH MCHC RDW Plt Count MPV Immature Gran % (Auto) Neut % (Auto) Lymph % (Auto) [place] % (Auto) Eos % (Auto) Baso % (Auto) Lymph # (Auto) [place] # (Auto) Eos # (Auto) Baso # (Auto) Abs Immat Gran (auto) Absolute Neuts (auto) Absolute Nucleated RBC Nucleated RBC % PT INR APTT Activ Coag Time Kaolin 251 H Sodium Potassium Chloride Carbon Dioxide Anion Gap BUN Creatinine Estim Creat Clear Calc Estimated GFR Glucose Calcium Phosphorus Magnesium Total Bilirubin AST ALT Alkaline Phosphatase Troponin I Total Protein Albumin Triglycerides Cholesterol LDL Cholesterol Direct HDL Direct Lipase Nasal MRSA (PCR) Not detected Blood Type AB Positive Antibody Screen Negative 04/27/25 08:59 WBC 9.1 RBC 4.58 L Hgb 14.6 Hct 41.7 L MCV 91.0 MCH 31.9 MCHC 35.0 RDW 12.7 Plt Count 272 MPV 8.2 Immature Gran % (Auto) 1.5 H Neut % (Auto) 67.0 Lymph % (Auto) 20.6 [place] % (Auto) 9.0 H Eos % (Auto) 1.1 Baso % (Auto) 0.8 Lymph # (Auto) 1.87 [place] # (Auto) 0.8 H Eos # (Auto) 0.1 Baso # (Auto) 0.1 Abs Immat Gran (auto) 0.14 H Absolute Neuts (auto) 6.1 Absolute Nucleated RBC 0.000 Nucleated RBC % 0.0 PT INR APTT Activ Coag Time Kaolin Sodium 135 L Potassium 4.2 Chloride 107 Carbon Dioxide 20 L Anion Gap 8 BUN 13 Creatinine 0.83 Estim Creat Clear Calc 116 Estimated GFR > 60 Glucose 112 H Calcium 8.8 Phosphorus 3.6 Magnesium 2.1 Total Bilirubin AST ALT Alkaline Phosphatase Troponin I Total Protein Albumin Triglycerides Cholesterol LDL Cholesterol Direct HDL Direct Lipase Nasal MRSA (PCR) Blood Type Antibody Screen Cardiac catheterization 1. Left main: The left main coronary artery is widely patent without any significant obstructive disease. 2. Left anterior descending: The LAD has 50% diffuse proximal and 40% mid stenosis. It gives off 2 large diagonal branches which are angiographically free of significant disease. 3. Left circumflex: The mid left circumflex artery has 40% stenosis. The left circumflex artery gives off a small OM 1 branch which is angiographically free of any significant obstructive disease, large OM 2 branch with 60% proximal stenosis, large OM 3 branch which is angiographically free of any significant obstructive disease, and a small OM 4 branch which is angiographically free of any significant obstructive disease. 4. Right coronary artery: The RCA has 40% proximal stenosis, 40% mid stenosis, and 90% distal stenosis (culprit) before bifurcation. There is TARAN 2 flow in the distal RCA beyond this lesion. The RCA is the dominant vessel. 5. Left ventricle: A. End-diastolic pressure 16 mmHg. B. LV gram deferred. C. No significant gradient across aortic valve on catheter pullback. Inferior STEMI status post PCI to 90% distal RCA stenosis with 3.0 mm X 22 mm and 3.5 mm X 18 mm stents in overlapping fashion post dilated with 3.25 mm X 15 mm NC balloon
[2025-04-27 10:21] LABS: Cholesterol 174 mg/dL (0-200); HDL Direct 55 mg/dL; Triglycerides 80 mg/dL (<150)
[2025-04-27] MEDS: ASPIRIN 81 MG ENTERIC TABLET PO (10:29)
[2025-04-27] MEDS: ATORVASTATIN 40 MG TABLET 80 MG PO (10:29)
[2025-04-27] MEDS: TICAGRELOR 90 MG TABLET PO ×2 (10:29→20:06)
[2025-04-27 10:31] LABS: LDL Cholesterol Direct 90 mg/dL
--- NOTE | 2025-04-27 11:50 | P.CONIN_ITS ---
Assessment and Plan Assessment and plan (1) ST elevation [place] (STEMI): Qualifiers: Involved coronary artery: unspecified coronary artery Qualified Code(s): I21.3 - ST elevation (STEMI) myocardial infarction of unspecified site Code(s): I21.3 - ST elevation (STEMI) myocardial infarction of unspecified site Status: Acute Assessment and Plan: Is 04/26/2025: Patient presented with left-sided chest pain radiating to left arm and left jaw, initial EKG did not show any ST-T changes will repeat EKG showed ST elevations in inferior leads, patient was taken to the cardiac finishing lab technician for emergent reperfusion -RCA was found to be 90% occluded distally, status post YOAN x2 in overlapping fashion to the distal RCA -hypotension was noted after nitroglycerin was administered, requiring William- Synephrine 100 mcg IV x1. Also patient was bradycardic after reperfusion and required atropine 0.5 mg x 2 doses. Both hypotension and bradycardia resolved at the end of the procedure -continue dual antiplatelet therapy with aspirin and Brilinta -continue atorvastatin -DC IV fluids -echocardiogram has been ordered -lipid panel within normal limits (2) Essential (primary) hypertension: Code(s): I10 - Essential (primary) hypertension Status: Acute Assessment and Plan: Hypertensive medications on hold for now since patient was hypotensive in the cardiac finishing lab technician -patient hypertensive male start antihypertensives (3) Low back pain with right-sided sciatica: Code(s): M54.41 - Lumbago with sciatica, right side Status: Acute Assessment and Plan: Patient on prednisone 20 mg daily, which was prescribed by his primary care physician -will start tapering prednisone to off (4) Tobacco abuse: Code(s): Z72.0 - Tobacco use Status: Acute Assessment and Plan: 5 minutes was spent on counseling on tobacco cessation, patient is very receptive to quit smoking Plan DVT prophylaxis: Status post cardiac catheterization Stress ulcer prophylaxis: Not indicated Nutrition: Heart healthy diet Code Status: Full code Critical Care Time Spent: 43 minutes Discussed with runner out Discussed with patient and his spouse at bedside and updated them with patient's condition and plan of care. Due to a high probability of clinically significant, life threatening deterioration, the patient required my highest level of preparedness to intervene emergently and I personally spent this critical care time directly and personally managing the patient. This critical care time included obtaining a history; examining the patient; pulse oximetry; ordering and review of studies; arranging urgent treatment with development of a management plan; evaluation of patient's response to treatment; frequent reassessment; and discussions with other providers. It was exclusive of separately billable procedures and treating other patients and teaching time. Please see Assessment and Plan section and the rest of the note for further information on patient assessment and treatment This dictation may have been done utilizing a voice recognition system. Attempts have been made to correct errors. However, there may be uncorrected grammatical, spelling, and recognitions errors present. [employer] Consult Note Consult date: 04/27/25 Reason for consult: Left-sided chest pain, inferior ST-elevation myocardial injury status post YOAN x2 in an overlapping fashion to the RCA HPI: Pato Ching is a 49 year old male with past medical history of essential hypertension, tobacco smoker, family history of CAD presented with left-sided chest pain NG to his left arm and left jaw. No alleviating or exacerbating factors. Not associated with shortness of breath or diaphoresis, palpitation, dizziness, lightheadedness, orthopnea or leg swelling. EKG initially did not show significant ST-T changes but repeat EKG [address]-elevation in lead [address] depressions in leads V1 and aVL. STEMI was activated and patient was taken to cardiac finishing lab technician for emergent revascularization. Patient was found to have 90% occlusion of the distal RCA status post YOAN x2 in a will obtain fashion to the RCA. Hypotension was noted after nitroglycerin was administered, requiring William-Synephrine 100 mcg IV x1. Also patient was bradycardic after reperfusion and required atropine 0.5 mg x 2 doses. Both hypotension and bradycardia resolved at the end of the procedure and was transferred to the ICU for further management. Patient seen and examined the ICU this morning, felt short of breath early this morning but feels much at this time. Patient also had some chest discomfort veins has resolved. Hemodynamically stable, adequate urine output, afebrile. Patient has been taking prednisone 20 mg daily for back pain prescribed by his primary care provider. Review of Systems 2 Review of Systems: All systems reviewed & are unremarkable except as noted in HPI and below PMFSH Past Medical History Medical History (Updated 04/27/25 @ 09:49 by Eamon Banuelos MD) Tobacco abuse Muscle spasm BMI 35.0-35.9,adult BMI 34.0-34.9,adult Central sleep apnea Seasonal allergies Otitis media of both ears Colon cancer screening (05/03/24) Normal colonoscopy 05/03/2024, Dr. Khan, recheck 7 years. Hypersomnia Witnessed episode of apnea Snoring Vitamin D deficiency BMI 33.0-33.9,adult Acute right hip pain BMI 31.0-31.9,adult Low back pain with right-sided sciatica Tobacco use disorder, continuous BMI 29.0-29.9,adult Herpes simplex of male genitalia Hypogonadism male Male erectile dysfunction, unspecified Essential (primary) hypertension HTN (hypertension) Family History Family History (Reviewed 09/21/24 @ 08:45 by Quinten Marin [facility]) Mother No problems noted. Father , 69 yrs old at time of Alzheimers disease Grandparent Cancer Grandparent , in house fire No problems noted. Grandparent Cancer Grandparent Cancer Social History Social History (Reviewed 09/21/24 @ 08:45 by Quinten Marin [facility]) Smoking packs per day: 1 Smoking cigarettes per day: 20.0 Years smoked: 3 Smoking pack-years: 3.00 Smoking status: Heavy tobacco smoker Tobacco type: cigarettes Alcohol intake: current Drinks per week: 35 Alcohol use details: 6 per day Substance use: never Substance use type: does not use Do You Feel Safe in your Home?: Yes Lack of Transportation: No Lack of Food: Never True Current Housing: I Have Housing Concerned About Future Housing: No Difficulty Paying Gas/Electric Bills: No Difficulty Paying for Meds: No Currently Unemployed: No Education: High School Diploma/GED Difficulty w/ Childcare or Family Care: No Living arrangements: with family Occupation/Education: occupation Gender identity (if verbalized by the patient): Male Sexual Orientation (if Verbalized by the Patient): Straight or Heterosexual Spiritual care concerns: No Agree to blood products: Yes Meds Home Medications and Allergies Home Medications ?Medication ?Instructions ?Recorded ?Confirmed ?Type tadalafil 20 mg tablet 20 mg PO DAILY PRN Sexual Activity 10/21/20 04/27/25 History valacyclovir 500 mg tablet 500 mg PO DAILY #90 tabs 04/06/24 04/27/25 Rx cetirizine 10 mg tablet (Zyrtec) 10 mg PO DAILY PRN Allergy Symptoms 04/12/24 04/27/25 History fluticasone propionate 50 1 spray intranasal BID 04/12/24 04/27/25 History mcg/actuation nasal spray,suspension (Flonase Allergy Relief) amlodipine 10 mg tablet 10 mg PO DAILY #90 tabs 04/02/25 04/27/25 Rx cyclobenzaprine 10 mg tablet 10 mg PO TID PRN muscle spasm #30 04/19/25 04/27/25 Rx tabs irbesartan 150 mg tablet 150 mg PO DAILY #30 tabs 04/19/25 04/27/25 Rx prednisone 20 mg tablet 20 mg PO DAILY #10 tabs 04/19/25 04/27/25 Rx Brilinta 90 mg tablet (ticagrelor) 90 mg PO Q12H #60 tabs 04/27/25 Rx Allergies Allergy/AdvReac Type Severity Reaction Status Date / Time No Known Allergies Allergy Verified 04/19/25 08:06 Vital Signs Vital Signs - 24 hr 04/26/25 20:16 04/26/25 20:17 04/26/25 20:20 Temperature 97.8 F 97.8 F Pulse Rate 87 79 Respiratory Rate 16 18 Blood Pressure 177/99 H 177/99 H Pulse Oximetry 95 99 Oxygen Delivery Room Air Room Air 04/26/25 20:30 04/26/25 21:31 04/26/25 21:46 Temperature 97.8 F 97.8 F Pulse Rate 80 87 81 Respiratory Rate 18 20 21 H Blood Pressure 159/100 H 164/97 H 157/103 H Pulse Oximetry 98 97 97 Oxygen Delivery 04/26/25 22:01 04/26/25 22:30 04/26/25 22:46 Temperature Pulse Rate 90 56 L 61 Respiratory Rate 20 18 20 Blood Pressure 155/93 H 126/90 Pulse Oximetry 98 98 99 Oxygen Delivery 04/26/25 22:47 04/26/25 23:00 04/26/25 23:15 Temperature Pulse Rate 62 64 60 Respiratory Rate 17 15 17 Blood Pressure Pulse Oximetry 99 98 97 Oxygen Delivery 04/26/25 23:16 04/26/25 23:30 04/26/25 23:31 Temperature 97.9 F Pulse Rate 67 81 85 Respiratory Rate 19 22 H 23 H Blood Pressure 128/95 H 128/95 H Pulse Oximetry 97 100 100 Oxygen Delivery Room Air 04/26/25 23:31 04/26/25 23:45 04/26/25 23:46 Temperature 97.9 F Pulse Rate 79 65 58 L Respiratory Rate 17 20 Blood Pressure 123/77 123/77 Pulse Oximetry 97 98 Oxygen Delivery 04/27/25 00:01 04/27/25 00:02 04/27/25 00:07 Temperature 98.2 F Pulse Rate 61 64 72 Respiratory Rate 16 19 18 Blood Pressure 134/96 H 134/96 H Pulse Oximetry 98 97 97 Oxygen Delivery 04/27/25 02:02 04/27/25 02:17 04/27/25 02:32 Temperature 98.1 F Pulse Rate 87 90 Respiratory Rate Blood Pressure 127/92 H 134/100 H Pulse Oximetry 99 99 97 Oxygen Delivery Room Air 04/27/25 02:32 04/27/25 02:47 04/27/25 03:00 Temperature Pulse Rate 82 84 86 Respiratory Rate Blood Pressure 136/96 H 140/102 H 134/101 H Pulse Oximetry 97 97 96 Oxygen Delivery 04/27/25 03:33 04/27/25 04:00 04/27/25 04:00 Temperature 98.0 F Pulse Rate 69 71 71 Respiratory Rate 13 Blood Pressure 127/96 H 133/100 H 133/100 H Pulse Oximetry 96 98 98 Oxygen Delivery 04/27/25 04:00 04/27/25 04:00 04/27/25 05:00 Temperature Pulse Rate 71 62 Respiratory Rate 16 Blood Pressure 125/91 H Pulse Oximetry 98 96 Oxygen Delivery Room Air 04/27/25 06:00 04/27/25 06:00 04/27/25 06:00 Temperature Pulse Rate 66 66 66 Respiratory Rate 14 14 Blood Pressure 136/87 136/87 Pulse Oximetry 96 96 Oxygen Delivery 04/27/25 08:00 04/27/25 08:00 04/27/25 10:00 Temperature 97.5 F L 97.9 F Pulse Rate 67 62 Respiratory Rate 18 18 Blood Pressure 126/92 H 122/92 H Pulse Oximetry 97 97 Oxygen Delivery Room Air Exam 2 Narrative: General: Pleasant gentleman in no acute distress HEENT:? Pupils equal and reactive, sclerae is clear Neck:? Supple Respiratory:? Clear to auscultation bilaterally Cardiac:? S1-S2 is normal: Bradycardia Abdomen:? Soft, nontender, nondistended, normoactive bowel sounds Extremities:? Right radial pulses are palpable, right radial cardiac catheterization site without hematoma or ecchymosis, bilateral palpable pedal pulses Neuro:? Patient is awake, alert, oriented x3, nonfocal Skin:? No skin lesion Psych:? Normal mentation and affect Results Labs 04/27/25 08:59 04/27/25 08:59 Labs: Short CBC 04/26/25 04/27/25 Range/Units 20:31 08:59 WBC 9.6 9.1 (4.5-10.0) K/mm3 Hgb 15.4 14.6 (14.0-18.0) g/dL Hct 43.1 41.7 L (42.0-52.0) % Plt Count 281 272 (150-375) k/mm3 BMP 04/26/25 04/27/25 20:31 08:59 Sodium 135 L 135 L Potassium 3.9 4.2 Chloride 105 107 Carbon Dioxide 21 L 20 L BUN 14 D 13 Creatinine 0.96 0.83 Glucose 108 112 H Calcium 9.3 8.8 Cardiac Enzymes 04/26/25 04/26/25 Range/Units 20:31 23:03 Troponin I 0.013 0.030 D (0.000-0.034) ng/mL Liver Function 04/26/25 Range/Units 20:31 Total Bilirubin 0.4 (0.2-1.3) mg/dL AST 30 (17-59) U/L ALT 29 (6-50) U/L Alkaline Phosphatase 58 (38-126) U/L Albumin 4.4 (3.5-5.1) g/dL Quality If No VTE Prophylaxis Answer both mechanical and pharmacologic: Reason no mechanical VTE proph: low risk/not indicated and medical contraindication (Status post cardiac catheterization) Hospitalist MIPS Advance Care Plan I have confirmed that the patient's Advanced Care Plan is present, code status is documented, or surrogate decision maker is listed in patient medical record.: Yes Medication Reconciliation I have utilized all available resources to obtain, update and review the patients current medications (includes all prescriptions, OTC, herbals, cannabis, and nutritional supplements).: Yes
[2025-04-27] MEDS: predniSONE 10 MG TABLET PO (12:08)
[2025-04-28] VITALS (18 sets, daily range): BP systolic 125–159; BP diastolic 83–103; PULSE 59–129; RESP 9–21; TEMP 36.6–36.8; O2SAT 95–98
[2025-04-28 03:51] LABS: Basophils Absolute Auto 0.1 K/mm3 (0.0-0.1); Basophils Percent Auto 0.7 % (0.2-1.2); Eosinophils Absolute Auto 0.1 K/mm3 (0-0.3); Eosinophils Percent Auto 1.3 % (0-4.4); Hematocrit 43.9 % (42.0-52.0); Hemoglobin 15.5 g/dL (14.0-18.0); Immature Granulocyte Absolute 0.04 K/mm3 (0.00-0.031); Immature Granulocyte Percent A 0.4 % (0-0.5); Lymphocytes Absolute Auto 2.62 K/mm3 (0.9-3.2); Lymphocytes Percent Auto 24.3 % (18.3-44.2); Mean Corpuscular HGB Conc 35.3 g/dl (32-36); Mean Corpuscular Hemoglobin 32.1 pg (26-34); Mean Corpuscular Volume 90.9 fl (80-100); Mean Platelet Volume 8.2 fl (7.4-10.4); Monocytes Absolute Auto 0.9 K/mm3 (0.1-0.6); Monocytes Percent Auto 8.7 % (2.6-8.5); Neutrophils Percent Auto 64.6 % (45.5-73.1); Platelet Count Result 269 k/mm3 (150-375); Red Blood Count 4.83 M/mm3 (4.6-6.20); Red Cell Distribution Width 12.7 % (11.5-14.5); White Blood Count 10.8 K/mm3 (4.5-10.0)
[2025-04-28 04:14] LABS: Anion Gap 9 mmol/L (4-12); Blood Urea Nitrogen 10 mg/dL (9-20); Calcium 9.2 mg/dL (8.4-10.2); Carbon Dioxide 21 mmol/L (22-30); Chloride 107 mmol/L (98-107); Estimated CRCL calculation 108 ml/min; Estimated Glomerular Filt Rate > 60; Glucose 109 mg/dL (65-110); Magnesium 2.2 mg/dL (1.6-2.3); Phosphorus 4.3 mg/dL (2.5-4.5); Potassium 4.1 mmol/L (3.4-5.0); Sodium 137 mmol/L (137-145)
[2025-04-28] MEDS: TICAGRELOR 90 MG TABLET PO ×2 (08:15→20:00)
[2025-04-28] MEDS: predniSONE 10 MG TABLET PO (08:17)
[2025-04-28] MEDS: ATORVASTATIN 40 MG TABLET 80 MG PO (08:17)
[2025-04-28] MEDS: ASPIRIN 81 MG ENTERIC TABLET PO (08:17)
--- NOTE | 2025-04-28 09:55 | P.PNCA_ITS ---
Progress Note: A&P Assessment and Plan (1) ST elevation [place] (STEMI): Qualifiers: Involved coronary artery: unspecified coronary artery Qualified Code(s): I21.3 - ST elevation (STEMI) myocardial infarction of unspecified site Code(s): I21.3 - ST elevation (STEMI) myocardial infarction of unspecified site Status: Acute Assessment and Plan: Inferior STEMI status post PCI to 90% distal RCA stenosis with 3.0 mm X 22 mm and 3.5 mm X 18 mm stents in overlapping fashion post dilated with 3.25 mm X 15 mm NC balloon Is okay to transfer to IMU. Echocardiogram showed preserved ejection fraction is. Continue high-dose statin. (2) Essential (primary) hypertension: Code(s): I10 - Essential (primary) hypertension Status: Acute Assessment and Plan: This is increased at this point and now able to initiate some antihypertensive therapy. Will start metoprolol tartrate and 25 mg p.o. b.i.d. and resume his irbesartan 150 mg daily. Hold off on amlodipine at this point. (3) Tobacco abuse: Code(s): Z72.0 - Tobacco use Status: Acute Assessment and Plan: counseling performed (4) Obstructive sleep apnea: Code(s): G47.33 - Obstructive sleep apnea (adult) (pediatric) Status: Acute Assessment and Plan: compliance with CPAP is important Plan Anticipate DC home tomorrow Subjective Date/time seen: 04/28/25 09:55 Interval history: 49 y/o male with PMH of HTN, current tobacco smoker who presents with CC of left-sided chest pain. Chest pain started this afternoon and is off and on since then. Pain radiates to his left arm and left jaw. There are no alleviating or exacerbating factors. No associated SOB or diaphoresis. No palpitations, dizziness, pre syncope, syncope, lightheadedness, PND, orthopnea, recent weight gain, or leg swelling. He has a family history of CAD and is a current smoker. His first EKG showed SR with no significant ST-T changes. Repeat EKG at [address] elevation in leads III, avF with reciprocal ST depressions in leads I, aVL. STEMI was activated and patient was taken to the cardiac catheterization lab emergently. Date of service 04/27/2025: PCI to the RCA. Was hypotensive and bradycardic after requiring William-Synephrine. hypertension bradycardia have resolved. Feels little short of breath today. No chest pain. Date of Service 04/28/2025: It he feels better today. No chest pain, shortness breath, syncope. Review of Systems Review of Systems: A complete review of systems was performed and negative other than those mentioned in the HPI. Constitutional: Constitutional: Denies body ache(s) Eyes: Eyes: Denies blurry vision ENT: Reports Normal hearing present Cardiovascular: Cardiovascular: Denies chest pain and Reports dyspnea Respiratory: Respiratory: Reports dyspnea Gastrointestinal: Gastrointestinal: Denies abdominal pain Genitourinary: Genitourinary: Denies hematuria Musculoskeletal: Musculoskeletal: Denies back pain Integumentary/Breasts: Skin/Breast: Denies rash Neurologic: Reports Normal hearing present and Denies Abnormal speech present Psychiatric: Psychiatric: Denies anxiety Endocrine: Endocrine: Denies change in body appearance Hematologic/Lymphatic: Hematologic/Lymphatic: Denies easy bleeding Allergic/Immunologic: Allergic/Immunologic: Denies GI upset with certain foods Exam Narrative: Alert oriented. Appears to be in no acute distress today although anxious. Appears stated age Const: General: comfortable and no acute distress HENMT: Face/Nose/Sinus: Normal nares present Mouth: Yes moist mucous membranes Eyes: General: appearance normal, both eyes and all related structures Sclera: sclerae normal Neck: Neck: supple and No no JVD Resp: Effort & Inspection: normal respiratory effort Auscultation: clear to auscultation bilaterally Cardio: Rate: regular rate Rhythm: regular rhythm GI: Inspection: non-distended Skin: General skin exam: normal color and no rashes or lesions noted Neuro: General: gait normal Cranial nerves: Yes Normal hearing present Speech: normal speech and No Abnormal speech present Extrem: General: normal to inspection and no edema Psych: Mental Status: mental status grossly normal Affect: normal affect Objective Data Vital Signs Vital Signs: Vital Signs - 24 hr 04/27/25 10:00 04/27/25 12:00 04/27/25 12:00 Temperature 36.6 C 36.4 C L Pulse Rate 62 74 66 Respiratory Rate 18 18 19 Blood Pressure 122/92 H 129/83 Pulse Oximetry 97 97 97 Oxygen Delivery Room Air 04/27/25 12:00 04/27/25 14:00 04/27/25 14:00 Temperature 36.9 C Pulse Rate 74 77 77 Respiratory Rate 20 Blood Pressure 112/55 L Pulse Oximetry 92 Oxygen Delivery 04/27/25 16:00 04/27/25 16:00 04/27/25 16:00 Temperature Pulse Rate 77 63 63 Respiratory Rate 20 13 Blood Pressure 161/99 H Pulse Oximetry 92 97 Oxygen Delivery Room Air 04/27/25 16:00 04/27/25 18:00 04/27/25 20:00 Temperature 36.7 C 36.7 C Pulse Rate 71 74 65 Respiratory Rate 18 18 18 Blood Pressure 158/94 H 172/88 H 176/92 H Pulse Oximetry 96 96 97 Oxygen Delivery 04/27/25 20:00 04/27/25 20:00 04/27/25 22:00 Temperature Pulse Rate 73 60 Respiratory Rate Blood Pressure Pulse Oximetry 97 Oxygen Delivery Room Air 04/27/25 22:00 04/28/25 00:00 04/28/25 00:00 Temperature 36.6 C Pulse Rate 60 61 62 Respiratory Rate 9 L 11 L Blood Pressure 162/96 H 153/92 H Pulse Oximetry 97 96 Oxygen Delivery 04/28/25 00:10 04/28/25 02:00 04/28/25 02:00 Temperature Pulse Rate 59 L 59 L Respiratory Rate 9 L Blood Pressure 145/83 H Pulse Oximetry 96 96 Oxygen Delivery Room Air 04/28/25 04:00 04/28/25 04:00 04/28/25 04:00 Temperature 36.7 C Pulse Rate 74 66 Respiratory Rate 16 Blood Pressure 144/99 H Pulse Oximetry 96 96 Oxygen Delivery Room Air 04/28/25 06:00 04/28/25 06:00 04/28/25 08:00 Temperature Pulse Rate 74 74 84 Respiratory Rate 18 21 H Blood Pressure 144/90 H Pulse Oximetry 96 97 Oxygen Delivery Room Air 04/28/25 08:00 04/28/25 08:00 Temperature Pulse Rate 84 84 Respiratory Rate 21 H Blood Pressure 159/97 H Pulse Oximetry 97 Oxygen Delivery Intake/Output Intake/Output: Intake & Output 04/25/25 04/26/25 04/27/25 04/28/25 23:59 23:59 23:59 23:59 Intake Total 2530 150 Output Total 2405 400 Balance -8855 -250 Meds/Results Medications: Active Medications Generic Name Dose Route Start Last Admin Trade Name Freq PRN Reason Stop Dose Admin Aspirin 81 mg 04/27/25 09:00 04/28/25 08:17 Aspirin 81 Mg Enteric Tablet PO 81 mg QAM [facility]AR[facility] Administration Atorvastatin Calcium 80 mg 04/27/25 09:00 04/28/25 08:17 Atorvastatin 40 Mg Tablet PO 80 mg DAILY [facility] Administration Nitroglycerin 0.4 mg 04/27/25 02:02 Nitroglycerin Sl 0.4 Mg Tablet SUBLINGUAL Q5MIN PRN Chest Pain Perflutren Lipid Microsphere 0 ml 04/27/25 08:30 Perflutren Lipid Microspheres 1.5 Ml Vial Diluted To 10 Ml Total Volume IV PUSH 04/30/25 08:30 ONCE PRN adequate visualization Protocol Prednisone 5 mg 04/29/25 08:00 Prednisone 5 Mg Tablet PO 04/30/25 08:01 DAILY@0800 [facility] Ticagrelor 90 mg 04/27/25 09:00 04/28/25 08:15 Ticagrelor 90 Mg Tablet PO 90 mg Q12HR [facility] Administration Radiology Results: ITS Impressions Chest X-Ray 04/26/25 22:03 IMPRESSION: No acute cardiopulmonary pathology Labs Labs: Laboratory Results - last 24 hr 04/27/25 04/28/25 03:45 03:30 WBC 10.8 H RBC 4.83 Hgb 15.5 Hct 43.9 MCV 90.9 MCH 32.1 MCHC 35.3 RDW 12.7 Plt Count 269 MPV 8.2 Immature Gran % (Auto) 0.4 Neut % (Auto) 64.6 Lymph % (Auto) 24.3 [place] % (Auto) 8.7 H Eos % (Auto) 1.3 Baso % (Auto) 0.7 Lymph # (Auto) 2.62 [place] # (Auto) 0.9 H Eos # (Auto) 0.1 Baso # (Auto) 0.1 Abs Immat Gran (auto) 0.04 H Absolute Neuts (auto) 7.0 H Absolute Nucleated RBC 0.000 Nucleated RBC % 0.0 Sodium 137 Potassium 4.1 Chloride 107 Carbon Dioxide 21 L Anion Gap 9 BUN 10 Creatinine 0.90 Estim Creat Clear Calc 108 Estimated GFR > 60 Glucose 109 Calcium 9.2 Phosphorus 4.3 Magnesium 2.2 Triglycerides 80 Cholesterol 174 LDL Cholesterol Direct 90 HDL Direct 55
[2025-04-28] MEDS: METOPROLOL TARTRATE 25 MG TABLET PO ×2 (10:12→20:00)
[2025-04-28] MEDS: IRBESARTAN 150 MG TABLET PO (10:13)
--- NOTE | 2025-04-28 10:55 | WPDINTPN ---
Progress Note: A&P Assessment and Plan (1) ST elevation [place] (STEMI): Qualifiers: Involved coronary artery: unspecified coronary artery Qualified Code(s): I21.3 - ST elevation (STEMI) myocardial infarction of unspecified site Code(s): I21.3 - ST elevation (STEMI) myocardial infarction of unspecified site Status: Acute Assessment and Plan: Is 04/26/2025: Patient presented with left-sided chest pain radiating to left arm and left jaw, initial EKG did not show any ST-T changes will repeat EKG showed ST elevations in inferior leads, patient was taken to the cardiac labor and delivery registered nurse for emergent reperfusion -RCA was found to be 90% occluded distally, status post YOAN x2 in overlapping fashion to the distal RCA -hypotension was noted after nitroglycerin was administered, requiring William-Synephrine 100 mcg IV x1. Also patient was bradycardic after reperfusion and required atropine 0.5 mg x 2 doses. Both hypotension and bradycardia resolved at the end of the procedure -continue dual antiplatelet therapy with aspirin and Brilinta -continue atorvastatin and metoprolol -DC IV fluids -lipid panel within normal limits 04/27/2025: Echocardiogram Summary 1. Complete two-dimensional, color flow and Doppler transthoracic echocardiogram is performed. 2. Left ventricular chamber dimension is normal. 3. Left ventricular systolic function is normal, estimated at 60-65. 4. There is mildly increased left ventricular wall thickness. 5. The basal inferior wall is akinetic. 6. The left ventricular diastolic function is grade I diastolic dysfunction. 7. The basal inferolateral wall, and mid inferolateral wall are hypokinetic. 8. There is mild to moderate mitral valve regurgitation. 9. There is mild pulmonic regurgitation. (2) Essential (primary) hypertension: Code(s): I10 - Essential (primary) hypertension Status: Acute Assessment and Plan: Hypertensive medications on hold for now since patient was hypotensive in the cardiac labor and delivery registered nurse -cardiology started metoprolol (3) Low back pain with right-sided sciatica: Code(s): M54.41 - Lumbago with sciatica, right side Status: Acute Assessment and Plan: Patient on prednisone 20 mg daily, which was prescribed by his primary care physician -continue prednisone taper (4) Tobacco abuse: Code(s): Z72.0 - Tobacco use Status: Acute Assessment and Plan: 5 minutes was spent on counseling on tobacco cessation, patient is very receptive to quit smoking Plan DVT prophylaxis: Status post cardiac catheterization Stress ulcer prophylaxis: Not indicated Nutrition: Heart healthy diet Code Status: Full code Critical Care Time Spent: 31 minutes Discussed with catechist, he will be starting metoprolol for elevated blood pressures, okay to transfer to IMU Discussed with patient and his spouse at bedside and updated them with patient's condition and plan of care. Due to a high probability of clinically significant, life threatening deterioration, the patient required my highest level of preparedness to intervene emergently and I personally spent this critical care time directly and personally managing the patient. This critical care time included obtaining a history; examining the patient; pulse oximetry; ordering and review of studies; arranging urgent treatment with development of a management plan; evaluation of patient's response to treatment; frequent reassessment; and discussions with other providers. It was exclusive of separately billable procedures and treating other patients and teaching time. Please see Assessment and Plan section and the rest of the note for further information on patient assessment and treatment This dictation may have been done utilizing a voice recognition system. Attempts have been made to correct errors. However, there may be uncorrected grammatical, spelling, and recognitions errors present. Subjective Date/time seen: 04/28/25 10:55 Interval history: Reason for consult: Left-sided chest pain, inferior ST-elevation myocardial injury status post YOAN x2 in an overlapping fashion to the RCA 04/28/2025: Patient seen and examined the ICU, is awake, alert, pleasant, in no acute distress. Patient is chest pain free, feels better, denies any shortness of breath, nausea, vomiting. Hemodynamically stable blood pressure is slightly elevated. Review of Systems Review of Systems: All systems reviewed & are unremarkable except as noted in HPI and below Exam Narrative: General: Pleasant gentleman in no acute distress HEENT:? Pupils equal and reactive, sclerae is clear Neck:? Supple Respiratory:? Clear to auscultation bilaterally Cardiac:? S1-S2 is normal: Bradycardia Abdomen:? Soft, nontender, nondistended, normoactive bowel sounds Extremities:? Right radial pulses are palpable, right radial cardiac catheterization site without hematoma or ecchymosis, bilateral palpable pedal pulses Neuro:? Patient is awake, alert, oriented x3, nonfocal Skin:? No skin lesion Psych:? Normal mentation and affect Objective Data Vital Signs Vital Signs: Vital Signs - 24 hr 04/27/25 12:00 04/27/25 12:00 04/27/25 12:00 Temperature 97.5 F L Pulse Rate 74 66 74 Respiratory Rate 18 19 Blood Pressure 129/83 Pulse Oximetry 97 97 Oxygen Delivery Room Air 04/27/25 14:00 04/27/25 14:00 04/27/25 16:00 Temperature 98.4 F Pulse Rate 77 77 77 Respiratory Rate 20 20 Blood Pressure 112/55 L Pulse Oximetry 92 92 Oxygen Delivery Room Air 04/27/25 16:00 04/27/25 16:00 04/27/25 16:00 Temperature 98.1 F Pulse Rate 63 63 71 Respiratory Rate 13 18 Blood Pressure 161/99 H 158/94 H Pulse Oximetry 97 96 Oxygen Delivery 04/27/25 18:00 04/27/25 20:00 04/27/25 20:00 Temperature 98.0 F Pulse Rate 74 65 73 Respiratory Rate 18 18 Blood Pressure 172/88 H 176/92 H Pulse Oximetry 96 97 Oxygen Delivery 04/27/25 20:00 04/27/25 22:00 04/27/25 22:00 Temperature Pulse Rate 60 60 Respiratory Rate 9 L Blood Pressure 162/96 H Pulse Oximetry 97 97 Oxygen Delivery Room Air 04/28/25 00:00 04/28/25 00:00 04/28/25 00:10 Temperature 97.9 F Pulse Rate 61 62 Respiratory Rate 11 L Blood Pressure 153/92 H Pulse Oximetry 96 96 Oxygen Delivery Room Air 04/28/25 02:00 04/28/25 02:00 04/28/25 04:00 Temperature 98.1 F Pulse Rate 59 L 59 L 74 Respiratory Rate 9 L 16 Blood Pressure 145/83 H 144/99 H Pulse Oximetry 96 96 Oxygen Delivery 04/28/25 04:00 04/28/25 04:00 04/28/25 06:00 Temperature Pulse Rate 66 74 Respiratory Rate Blood Pressure Pulse Oximetry 96 Oxygen Delivery Room Air 04/28/25 06:00 04/28/25 08:00 04/28/25 08:00 Temperature Pulse Rate 74 84 84 Respiratory Rate 18 21 H Blood Pressure 144/90 H Pulse Oximetry 96 97 Oxygen Delivery Room Air 04/28/25 08:00 04/28/25 10:12 Temperature Pulse Rate 84 79 Respiratory Rate 21 H Blood Pressure 159/97 H Pulse Oximetry 97 Oxygen Delivery Intake/Output Intake/Output: Intake & Output 04/25/25 04/26/25 04/27/25 04/28/25 23:59 23:59 23:59 23:59 Intake Total 2530 150 Output Total 4975 400 Balance -2445 -250 Meds/Results Medications: Active Medications Generic Name Dose Route Start Last Admin Trade Name Freq PRN Reason Stop Dose Admin Aspirin 81 mg 04/27/25 09:00 04/28/25 08:17 Aspirin 81 Mg Enteric Tablet PO 81 mg QAM [facility] Administration Atorvastatin Calcium 80 mg 04/27/25 09:00 04/28/25 08:17 Atorvastatin 40 Mg Tablet PO 80 mg DAILY [facility] Administration Irbesartan 150 mg 04/28/25 10:00 04/28/25 10:13 Irbesartan 150 Mg Tablet PO 150 mg QAM [facility] Administration Metoprolol Tartrate 25 mg 04/28/25 10:00 04/28/25 10:12 Metoprolol Tartrate 25 Mg Tablet PO 25 mg Q12HR [facility] Administration Nitroglycerin 0.4 mg 04/27/25 02:02 Nitroglycerin Sl 0.4 Mg Tablet SUBLINGUAL Q5MIN PRN Chest Pain Perflutren Lipid Microsphere 0 ml 04/27/25 08:30 Perflutren Lipid Microspheres 1.5 Ml Vial Diluted To 10 Ml Total Volume IV PUSH 04/30/25 08:30 ONCE PRN adequate visualization Protocol Prednisone 5 mg 04/29/25 08:00 Prednisone 5 Mg Tablet PO 04/30/25 08:01 DAILY@0800 [facility] Ticagrelor 90 mg 04/27/25 09:00 04/28/25 08:15 Ticagrelor 90 Mg Tablet PO 90 mg Q12HR [facility] Administration Radiology Results: ITS Impressions Chest X-Ray 04/26/25 22:03 IMPRESSION: No acute cardiopulmonary pathology Labs Labs: Laboratory Results - last 24 hr 04/28/25 03:30 WBC 10.8 H RBC 4.83 Hgb 15.5 Hct 43.9 MCV 90.9 MCH 32.1 MCHC 35.3 RDW 12.7 Plt Count 269 MPV 8.2 Immature Gran % (Auto) 0.4 Neut % (Auto) 64.6 Lymph % (Auto) 24.3 [place] % (Auto) 8.7 H Eos % (Auto) 1.3 Baso % (Auto) 0.7 Lymph # (Auto) 2.62 [place] # (Auto) 0.9 H Eos # (Auto) 0.1 Baso # (Auto) 0.1 Abs Immat Gran (auto) 0.04 H Absolute Neuts (auto) 7.0 H Absolute Nucleated RBC 0.000 Nucleated RBC % 0.0 Sodium 137 Potassium 4.1 Chloride 107 Carbon Dioxide 21 L Anion Gap 9 BUN 10 Creatinine 0.90 Estim Creat Clear Calc 108 Estimated GFR > 60 Glucose 109 Calcium 9.2 Phosphorus 4.3 Magnesium 2.2
[2025-04-29] VITALS (8 sets, daily range): BP systolic 120–140; BP diastolic 68–94; PULSE 58–95; RESP 16–18; TEMP 36.5–36.8; O2SAT 97–98
[2025-04-29] MEDS: ASPIRIN 81 MG ENTERIC TABLET PO (08:36)
[2025-04-29] MEDS: METOPROLOL TARTRATE 25 MG TABLET PO (08:36)
[2025-04-29] MEDS: TICAGRELOR 90 MG TABLET PO (08:36)
[2025-04-29] MEDS: predniSONE 5 MG TABLET PO (08:36)
[2025-04-29] MEDS: ATORVASTATIN 40 MG TABLET 80 MG PO (08:36)
[2025-04-29] MEDS: IRBESARTAN 150 MG TABLET PO (08:37)
--- NOTE | 2025-04-29 11:02 | PM.DS ---
DS: Admitting Diagnosis Discharge Date 04/29/2025 Admitting Diagnosis Inferior STEMI DS: Discharge Diagnosis Discharge Diagnosis (1) ST elevation [place] (STEMI): Qualifiers: Involved coronary artery: unspecified coronary artery Qualified Code(s): I21.3 - ST elevation (STEMI) myocardial infarction of unspecified site Code(s): I21.3 - ST elevation (STEMI) myocardial infarction of unspecified site Status: Acute Assessment and Plan: He is status post PCI to 90% distal RCA stenosis with 3.0 mm X 22 mm and 3.5 mm X 18 mm stents in overlapping fashion post dilated with 3.25 mm X 15 mm NC balloon. Is doing well post primary PCI without any chest pain or shortness of breath. TTE showed normal LVEF with akinesis of basal inferior wall, hypokinesis of basal inferolateral and mid inferolateral corbett, mild to moderate MR. 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 Continue medical management for this. Continue DAPT with aspirin 81 mg daily and ticagrelor 90 mg p.o. b.i.d. for at least 1 year. After that continue aspirin 81 mg daily indefinitely. Continue metoprolol 25 mg p.o. b.i.d. Continue atorvastatin 80 mg daily. Target LDL less than 70. Cardiac rehab at 1 month. Counseled about smoking cessation. Follow-up with cardiology in 1 month post discharge. (2) Essential (primary) hypertension: Code(s): I10 - Essential (primary) hypertension Status: Acute Assessment and Plan: Continue metoprolol 25 mg p.o. b.i.d. and irbesartan 150 mg p.o. daily. Stop amlodipine. 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 Patient is ready to quit. (4) Obstructive sleep apnea: Code(s): G47.33 - Obstructive sleep apnea (adult) (pediatric) Status: Acute DS: Summary Hospital Course Reason for hospitalization: Inferior STEMI Hospital Course: 49-year-old male with history of hypertension, current smoker presented with chest pain secondary to inferior STEMI. He underwent emergent cardiac catheterization and primary PCI to 90% distal RCA stenosis with 3.0 mm X 22 mm and 3.5 mm X 18 mm stents in overlapping fashion post dilated with 3.25 mm X 15 mm NC balloon. He was also noted to have nonobstructive CAD in the proximal LAD, mid LAD, and mid left circumflex for which he will be on medical management. He was loaded with 180 mg of p.o. ticagrelor in the labor conciliator. He was started on DAPT with aspirin 81 mg daily and ticagrelor 90 mg b.i.d. and will continue this for 1 year after which he will continue aspirin 81 mg daily indefinitely. He was started on metoprolol 25 mg p.o. b.i.d. which he tolerated well. He was started on atorvastatin 80 mg daily. His home dose of irbesartan 150 mg daily was continued for blood pressure control. Amlodipine was stopped to all of room with blood pressure for starting metoprolol. This was not restarted at discharge. His echo showed normal LVEF of 60%, akinesis of basal inferior wall, hypokinesis of basal and mid inferolateral corbett, mild to moderate mitral regurgitation. He was counseled about smoking cessation and patient decided to quit smoking. He will go for cardiac rehab at 1 month. Status at Discharge Cognitive/behavioral status at discharge: Stable Time Spent with Patient Time attestation: Total time spent providing and/or coordinating discharge services: 40 minutes Exam Narrative: General: Alert oriented x3, no acute distress Neck: Supple, no JVD Chest: Bilaterally clear to auscultation, no rales or rhonchi Cardiac: S1, S2 +, regular rate, regular rhythm, no murmurs or rubs Extremities: No pedal edema, no skin rash Neurologic: Alert and oriented x3, no focal neurological deficits Discharge Plan Discharge Attending physician on discharge: Courtney Alva Discharging Clinician: Courtney Alva Patient Disposition: Home Activity: other - see discharge instructions Diet: heart healthy Discharge Instructions: [facility] [address] [place] [address] DISCHARGE INSTRUCTIONS - POST PCI Activity 1. No lifting, pushing or pulling more than 10 pounds for 1 week. 2. No strenuous exercise or activity (including sexual activity) until you are released to do so. 3. May shower but no tub baths or swimming pool for 1 week. Avoid commercial hot tubs. They are too hot. Medications DO NOT STOP YOUR MEDICATIONS ONLY YOUR PROPERTY AND CASUALTY INSURANCE AGENT CAN STOP THE FOLLOWING MEDICATIONS - PLEASE CALL THE OFFICE WITH QUESTIONS. *Aspirin *Ticagrelor (Brilinta) *Atorvastatin *Irbesartan *Metoprolol Important Reminders 1. Keep your stent card in your wallet at all times 2. Follow a heart healthy diet paying extra attention to cholesterol and fats. 3. Stay hydrated. 4. If you have chest pain unrelieved by rest or nitroglycerin (if prescribed) call 911 immediately. 5. If you miss one dose of Brilinta (if prescribed) take a tablet at the next time due. If you miss 2 doses take a tablet when you remember and resume at the next time due. DISCHARGE INSTRUCTIONS - POST RADIAL CATH Activity 1. No lifting more than 5 lb with affected arm for 1 week. 2. May shower ( tomorrow) but no excessive soaking of affected hand/wrist (such as washing dishes), swimming pool or hot tub for 5 days. Wound Care 1. May remove arm board in the morning. 2. May remove gauze dressing in the morning and put Band-Aid over affected radial site. Keep site covered for 3 days. 3. Observe for redness, drainage, swelling or bleeding. Patient Instructions: Antibiotic Form, Heart Attack (DC), Coronary Artery Disease (DC), Acute Coronary Syndrome (DC) Patient Language: [place] Stand Alone Forms: General Discharge Information Follow-up/Referrals: Kim Dyer NP [Primary Care Provider] - Discharge Medications: New ticagrelor [Brilinta] 90 mg tablet 90 mg PO Q12H Qty: 60 11RF aspirin 81 mg Tablet,Delayed Release (Dr/Ec) 81 mg PO QAM Qty: 30 12RF prednisone 5 mg Tablet 5 mg PO DAILY@0800 2 Days Qty: 2 0RF atorvastatin 40 mg Tablet 80 mg PO DAILY 30 Days Qty: 60 12RF ticagrelor [Brilinta] 90 mg Tablet 90 mg PO Q12HR 30 Days Qty: 60 12RF metoprolol tartrate 25 mg Tablet 25 mg PO Q12HR 30 Days Qty: 60 12RF Continued tadalafil 20 mg tablet 20 mg PO DAILY PRN (Reason: Sexual Activity) Rx Instructions: administer approximately 30min before sexual activity; do not use more than 1 dose per 24hrs valacyclovir 500 mg tablet 500 mg PO DAILY Qty: 90 3RF fluticasone propionate [Flonase Allergy Relief] 50 mcg/actuation spray,suspension 1 spray intranasal BID Rx Instructions: administer into each nostril cetirizine [Zyrtec] 10 mg tablet 10 mg PO DAILY PRN (Reason: Allergy Symptoms) irbesartan 150 mg tablet 150 mg PO DAILY Qty: 30 5RF cyclobenzaprine 10 mg tablet 10 mg PO TID PRN (Reason: muscle spasm) Qty: 30 0RF Discontinued prednisone 20 mg tablet 20 mg PO DAILY Qty: 10 0RF amlodipine 10 mg tablet 10 mg PO DAILY Qty: 90 3RF Date of admission: 04/27/25 02:02 Primary Care Provider: Kim Dyer Admitting Provider: Courtney Alva Attending physician on admission: Courtney Alva Condition: Serious
== END 2025-04-29 11:46 | disposition home or self-care (01) | DRG 322 ==
LOC: ANHED 23:33 → ANHICU 04-27 02:12 → ANHIMU 04-29 10:13 → ANHCATHLAB 04-30 08:51 → ANHICU 04-30 08:52 → ANHIMU 04-30 08:52
PROVIDERS: Internal Medicine; Internal Medicine Cardiovascular Disease; Student in an Organized Health Care Education/Training Program; Admitting Provider Internal Medicine Interventional Cardiology; Emergency Provider Physician Assistant; PCP Nurse Practitioner Family; Visit Provider Internal Medicine Interventional Cardiology
PROC: 4A023N7 Measurement of Cardiac Sampling and Pressure, Left Heart, Percutaneous Approach (ICD-10-PCS; CPT 93452; principal; 2025-04-26 23:50)
PROC: 027034Z Dilation of Coronary Artery, One Artery with Drug-eluting Intraluminal Device, Percutaneous Approach (ICD-10-PCS; CPT 92928; 2025-04-26 23:50)
DX: I21.19 ST elevation (STEMI) myocardial infarction involving other coronary artery of inferior wall (principal); I97.790 Other intraoperative cardiac functional disturbances during cardiac surgery; R00.1 Bradycardia, unspecified; I95.2 Hypotension due to drugs; T46.3X5A Adverse effect of coronary vasodilators, initial encounter; I25.10 Atherosclerotic heart disease of native coronary artery without angina pectoris; F17.210 Nicotine dependence, cigarettes, uncomplicated; G47.33 Obstructive sleep apnea (adult) (pediatric); M54.41 Lumbago with sciatica, right side
CPT/HCPCS: 36415; 71046; 80048; 80053; 80061; 83690; 83735; 84100; 84484; 85025; 85610; 85730; 86850; 86900; 86901; 87641; 92978; 93005; 93306; 93458; 96374; 96375; 99285; A9270; C1725; C1753; C1769; C1874; C1887; C1894; C9606; J0461; J1265; J1644; J2003; J2250; J2270; J2305; J2371; J2405; J3010; J7030; J7040; J7512

== ENCOUNTER 2025-06-30 11:44 | Emergency (ER) | payer OTHER, SELFPAY ==
[2025-06-30] VITALS (15 sets, daily range): BP systolic 131–158; BP diastolic 88–128; PULSE 72–86; RESP 12–19; TEMP 36.6; O2SAT 97–100
--- NOTE | ~2025-06-30 | XR_ITS ---
Portable chest x-ray Comparison: 04/26/2025 Clinical History: Chest pain Findings: Lungs are clear, without focal consolidation or pleural effusion. Cardiomediastinal silho uette is stable. Bones and soft tissues are unremarkable. Impression: Normal chest. Reviewed, dictated and finalized at [facility]. Impression: Normal chest.
--- NOTE | 2025-06-30 11:59 | ECG_ITS ---
Test Date: 2025-06-30 11:52:16 Measurements Intervals [place] Rate: 70 P: -6 RI: 153 QRS: 7 QRSD: 106 T: 13 QT: 363 QTc: 393 Interpretive Statements SINUS RHYTHM NORMAL ECG Compared to ECG 04/27/2025 02:06:54 NO SIGNIFICANT CHANGE Electronically Signed On 06-30-2025 14:53:13 CDT by Yair Francisco D.O.
--- NOTE | 2025-06-30 12:03 | ED_ITS ---
HPI - General Adult General Chief complaint: Recheck/Abnormal Lab/Rx Stated complaint: htn, strange feelings Time Seen by Provider: 06/30/25 11:59 Source: patient History of Present Illness HPI narrative: 49 years old white male came from home by private car with his complaining of not feeling well this morning, nonspecific, got scared ran to check his blood pressure and was elevated, kept checking his blood pressure every 10 minutes with different reading each time started having palpitation, slight shortness of breath, slight clammy skin, on arrival to the ED most of his symptoms are gone but feeling nervous and anxious. He denies any chest pain or neck pain or arm pain or back pain. History of coronary stent 2 months ago, hypertension, hyperlipidemia. is telling me that patient is stressed about his heart condition. Related Data Home Medications ?Medication ?Instructions ?Recorded ?Confirmed ?Last Taken ?Type tadalafil 20 mg tablet 20 mg PO DAILY PRN Sexual Activity 10/21/20 04/27/25 Unknown History cetirizine 10 mg tablet (Zyrtec) 10 mg PO DAILY PRN Allergy Symptoms 04/12/24 04/27/25 05/02/24 History fluticasone propionate 50 1 spray intranasal BID 04/12/24 04/27/25 05/01/24 History mcg/actuation nasal spray,suspension (Flonase Allergy Relief) Allergies Allergy/AdvReac Type Severity Reaction Status Date / Time No Known Allergies Allergy Verified 06/30/25 11:59 Review of Systems 2 Review of Systems: All systems reviewed & are unremarkable except as noted in HPI and below PMFSH Past Medical History Medical History History of ST elevation myocardial infarction (STEMI) 04/26/25: RCA stented CAD (coronary artery disease) Tobacco abuse Muscle spasm BMI 35.0-35.9,adult BMI 34.0-34.9,adult Central sleep apnea Seasonal allergies Otitis media of both ears Colon cancer screening (05/03/24) Normal colonoscopy 05/03/2024, Dr. Khan, recheck 7 years. Hypersomnia Witnessed episode of apnea Snoring Vitamin D deficiency BMI 33.0-33.9,adult Acute right hip pain BMI 31.0-31.9,adult Low back pain with right-sided sciatica Tobacco use disorder, continuous BMI 29.0-29.9,adult Herpes simplex of male genitalia Hypogonadism male Male erectile dysfunction, unspecified Essential (primary) hypertension HTN (hypertension) Family History Family History Mother Acute myocardial infarction Father , 69 yrs old at time of Alzheimers disease Hypertension Grandparent Cancer Grandparent , in house fire No problems noted. Grandparent Cancer Grandparent Cancer Social History Social History Smoking packs per day: 1 Smoking cigarettes per day: 20.0 Years smoked: 5 Smoking pack-years: 5.00 Smoking status: Former smoker Tobacco type: cigarettes Alcohol intake: current Drinks per week: 35 Alcohol use details: 6 per day Substance use: never Substance use type: does not use Do You Feel Safe in your Home?: Yes Lack of Transportation: No Lack of Food: Never True Current Housing: I Have Housing Concerned About Future Housing: No Difficulty Paying Gas/Electric Bills: No Difficulty Paying for Meds: No Currently Unemployed: No Education: High School Diploma/GED Difficulty w/ Childcare or Family Care: No Living arrangements: with family Occupation/Education: occupation Gender identity (if verbalized by the patient): Male Sexual Orientation (if Verbalized by the Patient): Straight or Heterosexual Spiritual care concerns: No Agree to blood products: Yes Exam 2 Narrative: General appearance: Well-developed, well-nourished Skin: Normal color Head: Normocephalic, nontraumatic Eyes: Clear conjunctiva ENT: Oropharynx normal, ears normal, nose normal Neck: Supple, nontender Chest and respiratory: Airway patent, no respiratory distress, no accessory muscle use Heart: Regular rate/rhythm Abdomen: Soft, nontender, no organomegaly, quiet bowel sounds Vascular: Normal peripheral pulses, normal capillary refill. 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, no gross motor deficit Course Vital Signs Vital signs: Vital Signs Temperature 36.6 C 06/30/25 11:53 Pulse Rate 78 06/30/25 11:53 Respiratory Rate 16 06/30/25 11:53 Blood Pressure 158/105 H 06/30/25 11:53 Pulse Oximetry 99 06/30/25 11:53 Oxygen Delivery Room Air 06/30/25 11:53 Temperature 36.6 C 06/30/25 11:53 Pulse Rate 73 06/30/25 12:46 Respiratory Rate 15 06/30/25 12:46 Blood Pressure 137/89 06/30/25 12:46 Pulse Oximetry 98 06/30/25 12:46 Oxygen Delivery Room Air 06/30/25 11:53 Medical Decision Making MDM Narrative Medical decision making narrative: Patient presents with not feeling good, repeated blood pressure showing different reading each time On arrival to the ED, vital signs showing blood pressure 158/105 otherwise within normal limit Physical examination showing restless anxious patient otherwise within normal limit Blood workup today includes CBC, CMP, troponin, BMP showed sodium of 129, blood glucose a is 184 Chest x-ray showed no acute abnormality EKG on arrival showed normal sinus rhythm at 70 beats per minute compared to EKG on April 27, 2025 myocardial infarction findings no longer present In the ED patient received Ativan 1 mg IV with remarkable improvement, patient feeling much better, blood pressure is 130/86. Diagnosis anxiety like symptoms, depression The pt was discharged to home.the pt,s condition upon discharge was fair,education was provided to the pt in reference to the final impression,discharge study results,treatment,prognosis and need for follow up . Vital Signs Vital Signs: Vital Signs Temperature 36.6 C 06/30/25 11:53 Pulse Rate 78 06/30/25 11:53 Respiratory Rate 16 06/30/25 11:53 Blood Pressure 158/105 H 06/30/25 11:53 Pulse Oximetry 99 06/30/25 11:53 Oxygen Delivery Room Air 06/30/25 11:53 Temperature 36.6 C 06/30/25 11:53 Pulse Rate 73 06/30/25 12:46 Respiratory Rate 15 06/30/25 12:46 Blood Pressure 137/89 06/30/25 12:46 Pulse Oximetry 98 06/30/25 12:46 Oxygen Delivery Room Air 06/30/25 11:53 Lab Data 06/30/25 12:17 06/30/25 12:17 Labs: Lab Results 06/30/25 Range/Units 12:17 WBC 7.6 (4.5-10.0) K/mm3 RBC 4.18 L (4.6-6.20) M/mm3 Hgb 13.6 L (14.0-18.0) g/dL Hct 36.7 L (42.0-52.0) % MCV 87.8 (80-100) fl MCH 32.5 (26-34) pg MCHC 37.1 H (32-36) g/dl RDW 12.2 (11.5-14.5) % Plt Count 258 (150-375) k/mm3 MPV 8.1 (7.4-10.4) fl Immature Gran % (Auto) 0.3 (0-0.5) % Neut % (Auto) 63.9 (45.5-73.1) % Lymph % (Auto) 18.2 L (18.3-44.2) % [place] % (Auto) 8.4 (2.6-8.5) % Eos % (Auto) 8.0 H (0-4.4) % Baso % (Auto) 1.2 (0.2-1.2) % Lymph # (Auto) 1.39 (0.9-3.2) K/mm3 [place] # (Auto) 0.6 (0.1-0.6) K/mm3 Eos # (Auto) 0.6 H (0-0.3) K/mm3 Baso # (Auto) 0.1 (0.0-0.1) K/mm3 Abs Immat Gran (auto) 0.02 (0.00-0.031) K/mm3 Absolute Neuts (auto) 4.9 (1.3-6.7) K/mm3 Absolute Nucleated RBC 0.000 (0.0-0.012) K/mm3 Nucleated RBC % 0.0 (0.0-0.2) % PT 13.2 (11.1-14.7) Seconds INR 1.0 APTT 31.1 (22.3-36.8) Seconds Sodium 129 L (137-145) mmol/L Potassium 4.3 (3.4-5.0) mmol/L Chloride 98 (98-107) mmol/L Carbon Dioxide 21 L (22-30) mmol/L Anion Gap 10 (4-12) mmol/L BUN 10 (9-20) mg/dL Creatinine 0.77 (0.7-1.3) mg/dL Estim Creat Clear Calc 122 ml/min Estimated GFR > 60 (59 - ) Glucose 184 H (65-110) mg/dL Calcium 8.8 (8.4-10.2) mg/dL Total Bilirubin 0.4 (0.2-1.3) mg/dL AST 28 (17-59) U/L ALT 30 (6-50) U/L Alkaline Phosphatase 68 (38-126) U/L Troponin I < 0.012 (0.000-0.034) ng/mL NT-Pro-B Natriuret Pep 90 (19.9-100) pg/mL Total Protein 7.2 (6.3-8.2) g/dL Albumin 4.3 (3.5-5.1) g/dL Lipase 44 (23-300) U/L Imaging Data Radiologist's impression: Impressions Chest X-Ray 06/30/25 13:24 Impression: Normal chest. ECG Data EKG #1: Attestation: I personally reviewed and interpreted this ECG as follows: ECG completion date: 06/30/25 Prior ECG tracings: available for review Interpretation: Normal sinus rhythm at 70 beats per minute, compared to EKG on April 27, 2025 myocardial infarction findings no longer present Critical Care Time Critical Care Time Critical Care Time: No Discharge Plan Discharge Clinical Impression: Anxiety-like symptoms, Acute hyponatremia Patient Disposition: Home Condition: Improved Instructions: Anxiety (ED), Hyponatremia (ED) Additional Instructions: Return if symptoms are worsening , call your family physician for appointment, take Tylenol as as needed for aches and pain, continue home medications. Patient Language: Greek Prescriptions: No Action tadalafil 20 mg tablet 20 mg PO DAILY PRN (Reason: Sexual Activity) Rx Instructions: administer approximately 30min before sexual activity; do not use more than 1 dose per 24hrs fluticasone propionate [Flonase Allergy Relief] 50 mcg/actuation spray,suspension 1 spray intranasal BID Rx Instructions: administer into each nostril cetirizine [Zyrtec] 10 mg tablet 10 mg PO DAILY PRN (Reason: Allergy Symptoms) irbesartan 150 mg tablet 150 mg PO DAILY Qty: 30 5RF cyclobenzaprine 10 mg tablet 10 mg PO TID PRN (Reason: muscle spasm) Qty: 30 0RF ticagrelor [Brilinta] 90 mg tablet 90 mg PO Q12H Qty: 60 11RF atorvastatin 40 mg Tablet 80 mg PO DAILY 30 Days Qty: 60 12RF aspirin 81 mg Tablet,Delayed Release (Dr/Ec) 81 mg PO QAM Qty: 30 12RF metoprolol tartrate 25 mg Tablet 25 mg PO Q12HR 30 Days Qty: 60 12RF ticagrelor [Brilinta] 90 mg Tablet 90 mg PO Q12HR 30 Days Qty: 60 12RF prednisone 5 mg Tablet 5 mg PO DAILY@0800 2 Days Qty: 2 0RF valacyclovir 500 mg tablet 500 mg PO DAILY Qty: 90 3RF Follow-up/Referrals: Kim Dyer NP [Primary Care Provider] -
[2025-06-30] MEDS: ASPIRIN 81 MG CHEWABLE TABLET 324 MG PO (12:18)
[2025-06-30 12:29] LABS: Hematocrit 36.7 % (42.0-52.0); Hemoglobin 13.6 g/dL (14.0-18.0); Immature Granulocyte Percent A 0.3 % (0-0.5); Lymphocytes Absolute Auto 1.39 K/mm3 (0.9-3.2); Mean Corpuscular HGB Conc 37.1 g/dl (32-36); Mean Corpuscular Hemoglobin 32.5 pg (26-34); Mean Corpuscular Volume 87.8 fl (80-100); Nucleated Red Blood Cells Absolute Auto 0.000 K/mm3 (0.0-0.012); Nucleated Red Blood Cells Perc 0.0 % (0.0-0.2); Platelet Count Result 258 k/mm3 (150-375); Red Blood Count 4.18 M/mm3 (4.6-6.20); White Blood Count 7.6 K/mm3 (4.5-10.0)
[2025-06-30 12:39] LABS: Alanine Aminotransferase 30 U/L (6-50); Albumin Level 4.3 g/dL (3.5-5.1); Alkaline Phosphatase 68 U/L (38-126); Anion Gap 10 mmol/L (4-12); Aspartate Amino Transferase 28 U/L (17-59); Bilirubin,Total 0.4 mg/dL (0.2-1.3); Blood Urea Nitrogen 10 mg/dL (9-20); Calcium 8.8 mg/dL (8.4-10.2); Carbon Dioxide 21 mmol/L (22-30); Chloride 98 mmol/L (98-107); Estimated CRCL calculation 122 ml/min; Estimated Glomerular Filt Rate > 60; Glucose 184 mg/dL (65-110); Lipase 44 U/L (23-300); Potassium 4.3 mmol/L (3.4-5.0); Sodium 129 mmol/L (137-145); Total Protein 7.2 g/dL (6.3-8.2)
[2025-06-30] MEDS: LORazepam INJ (*CRX) 2 MG/ML VIAL 1 MG IV PUSH (12:41)
[2025-06-30 12:43] LABS: INR 1.0; Prothrombin Time 13.2 Seconds (11.1-14.7)
[2025-06-30 12:44] LABS: Partial Thromboplastin Time 31.1 Seconds (22.3-36.8)
[2025-06-30 12:50] LABS: NT Pro B Type Natriuretic Pept 90 pg/mL (19.9-100); Troponin I < 0.012 ng/mL (0.000-0.034)
== END 2025-06-30 13:58 | disposition home or self-care (01) ==
PROVIDERS: Emergency Provider Emergency Medicine; PCP Nurse Practitioner Family
DX: F41.1 Generalized anxiety disorder (principal); E87.1 Hypo-osmolality and hyponatremia; I25.10 Atherosclerotic heart disease of native coronary artery without angina pectoris; I25.2 Old myocardial infarction; E55.9 Vitamin D deficiency, unspecified; I10 Essential (primary) hypertension; Z87.891 Personal history of nicotine dependence
CPT/HCPCS: 36415; 71045; 80053; 83690; 83880; 84484; 85025; 85610; 85730; 93005; 96374; 99284; A9270; J2060

== ENCOUNTER 2025-09-11 07:15 | Outpatient (RCR) | payer OTHER, SELFPAY | END 2025-09-12 08:33 | disposition home or self-care (01) | LOC: ANHCPREHAB 07:15 | PROVIDERS: PCP Nurse Practitioner Family; Visit Provider Internal Medicine Cardiovascular Disease | DX: Z95.5 Presence of coronary angioplasty implant and graft (principal); I25.2 Old myocardial infarction; I25.10 Atherosclerotic heart disease of native coronary artery without angina pectoris | CPT/HCPCS: 93798 ==